=== PATIENT | male | born 1940 | race Caucasian/White ===

== ENCOUNTER → 2024-05-21 | Outpatient (CLI) | payer MEDICARE, SELFPAY ==
[2024-05-21 11:50] LABS: Collection Type, Urine Clean Catch
[2024-05-21 12:27] LABS: Bilirubin,Urine Negative (Negative); Blood,Urine Negative (Negative); Clarity,Urine Clear (Clear/Hazy); Color,Urine Yellow (Lt Yel-Yel); Culture Indicated,Urine Not Indicated; Glucose, Urine Negative (Negative); Ketones,Urine Negative (Negative); Leukocyte Esterase,Urine Negative (Negative); Nitrite,Urine Negative (Negative); PH,Urine 5.5 (5.0-7.0); Protein,Urine Trace (Neg - Trace); RBC,Urine 1 /hpf (0-3); Specific Gravity,Urine 1.025 (1.001-1.035); Squamous Epithelial Cell,Urine < 1 /hpf (0-5); Urobilinogen,Urine Negative mg/dL (0.0-1.0); WBC,Urine < 1 /hpf (0-5)
[2024-05-21 12:40] LABS: Alanine Aminotransferase 15 U/L (10-49); Albumin, Serum 4.5 gm/dL (3.4-4.8); Alkaline Phosphatase 93 U/L (46-116); Anion Gap 7 (7-16); Aspartate Amino Transferase 13 U/L (0-34); BUN/Creatinine Ratio 16 Ratio (12-20); Bilirubin,Total 0.5 mg/dL (0.3-1.2); Blood Urea Nitrogen 16 mg/dL (9-23); Carbon Dioxide 28.4 mMol/L (20.0-31.0); Chloride 103 mMol/L (98-107); Creatine Kinase 48 U/L (34-171); Globulin 2.2 gm/dL (2.3-3.5); Glucose 129 mg/dL (74-106); Lipase 29 U/L (12-53); Magnesium 1.7 mg/dL (1.6-2.6); Osmolality,Calculated 278 (275-295); Potassium 4.2 mMol/L (3.4-5.1); Sodium 138 mMol/L (136-145); Total Protein 6.7 gm/dL (5.7-8.2); Vitamin B12 935 pg/mL (211-911); eGFR > 60 See Note
== END | disposition home or self-care (01) ==
PROVIDERS: PCP Nurse Practitioner Family; Referring Provider Nurse Practitioner Family; Visit Provider Nurse Practitioner Family
DX: K80.20 Calculus of gallbladder without cholecystitis without obstruction (principal); N28.1 Cyst of kidney, acquired; R25.2 Cramp and spasm
CPT/HCPCS: 36415; 80053; 81001; 82550; 82607; 83690; 83735

== ENCOUNTER → 2024-06-12 | Outpatient (BNVA) | payer MEDICARE, SELFPAY | END | disposition home or self-care (01) | PROVIDERS: PCP Family Medicine; Referring Provider Family Medicine; Visit Provider Urology | DX: N40.1 Benign prostatic hyperplasia with lower urinary tract symptoms (principal); N13.8 Other obstructive and reflux uropathy; N32.81 Overactive bladder; I10 Essential (primary) hypertension; E11.9 Type 2 diabetes mellitus without complications; Z87.891 Personal history of nicotine dependence | CPT/HCPCS: 51798; 76857; 81003; 99212; 99213; G0463 ==

== ENCOUNTER → 2024-06-14 | Outpatient (CLI) | payer MEDICARE, SELFPAY | END | disposition home or self-care (01) | LOC: SDIM 09:48 | PROVIDERS: PCP Nurse Practitioner Family; Referring Provider Nurse Practitioner Family; Visit Provider Nurse Practitioner Family | DX: Z53.8 Procedure and treatment not carried out for other reasons (principal) ==

== ENCOUNTER → 2024-07-30 | Outpatient (CLI) | payer MEDICARE, SELFPAY ==
[2024-07-30 12:12] LABS: Misc Send Out* See Sep Rpt
[2024-07-30 13:44] LABS: Basophils % (Auto) 1 % (0-2.5); Eosinophils # (Auto) 0.1 Thou/mm3 (0.0-0.5); Eosinophils % (Auto) 2 % (0-10); Hematocrit 44.4 % (41.0-53.0); Hemoglobin 14.4 g/dL (13.5-16.0); Immature Granulocytes % (Auto) 0 % (0-0); Immature Granulocytes Auto 0.02 Thou/mm3 (0.00-0.00); Lymphocytes # (Auto) 1.2 Thou/mm3 (1.0-4.8); Lymphocytes % (Auto) 20 % (10-50); Mean Corpuscular HGB Conc 32.4 g/dl (31.0-37.0); Mean Corpuscular Hemoglobin 28.6 pg (25.0-35.0); Mean Corpuscular Volume 88 fL (80-100); Monocytes # (Auto) 0.6 Thou/mm3 (0.0-0.8); Monocytes % (Auto) 9 % (0-12); Neutrophils # (Auto) 4.1 Thou/mm3 (1.8-7.7); Neutrophils % (Auto) 68 % (37-80); Nucleated Red Blood Cell % 0 /100 WBC (0); Platelet Count 225 Thou/mm3 (140-440); RDW Standard Deviation 46.5 fL (35.1-43.9); Red Blood Count 5.04 Miln/mm3 (4.50-5.90)
[2024-07-30 13:47] LABS: INR 1.1 (0.9-1.3); Prothrombin Time 11.9 Seconds (9.0-12.2)
[2024-07-30 14:04] LABS: Alanine Aminotransferase 18 U/L (10-49); Albumin, Serum 4.4 gm/dL (3.4-4.8); Alkaline Phosphatase 87 U/L (46-116); Anion Gap 7 (7-16); Aspartate Amino Transferase 16 U/L (0-34); BUN/Creatinine Ratio 17 Ratio (12-20); Bilirubin,Direct 0.1 mg/dL (0.0-0.3); Bilirubin,Total 0.3 mg/dL (0.3-1.2); Blood Urea Nitrogen 17 mg/dL (9-23); Calcium 9.4 mg/dL (8.3-10.6); Carbon Dioxide 29.9 mMol/L (20.0-31.0); Chloride 103 mMol/L (98-107); Glucose 158 mg/dL (74-106); LDH (Lactate Dehydrogenase) 175 U/L (120-246); Osmolality,Calculated 283 (275-295); Potassium 4.2 mMol/L (3.4-5.1); Sodium 140 mMol/L (136-145); Total Protein 6.8 gm/dL (5.7-8.2); eGFR > 60 See Note
[2024-07-30 14:45] LABS: Ferritin 26 ng/mL (10.5-307.3)
[2024-07-30 16:45] LABS: Hepatitis A Antibody IgM Non Reactive (Non React); Hepatitis B Core Antibody IgM Non Reactive (Non React); Hepatitis B Surface Antigen Non Reactive (Non React); Hepatitis C Antibody Non Reactive (Non React)
[2024-08-04 06:49] LABS: HIV Ag/Ab, 4th Gen NON-REACTIVE
== END | disposition home or self-care (01) ==
LOC: COPL 11:51
PROVIDERS: PCP Family Medicine; Referring Provider Internal Medicine Gastroenterology; Visit Provider Internal Medicine Gastroenterology
DX: K80.20 Calculus of gallbladder without cholecystitis without obstruction (principal)
CPT/HCPCS: 36415; 80048; 80074; 80076; 81596; 82105; 82728; 83615; 85025; 85610; 87389

== ENCOUNTER → 2024-08-20 | Outpatient (CLI) | payer MEDICARE, SELFPAY ==
--- NOTE | 2024-08-20 13:22 | XR_ITS ---
MRI abdomen, without contrast. MRCP Date and time of exam: August 20, 2024 1352 hrs. Indications: Abdominal pain beginning 7 months ago, cholelithiasis, suspicious for cholecystitis gallbladder wall thickening on abdomen sonogram May 16, 2024 Technique: Multiple axial and coronal images of the abdomen have been obtained with the Siemens 1.5T MRI scanner. Images obtained included T1 weighted transverse images, T2-weighted transverse images, T2-weighted transverse images fat-suppressed, T2 weighted haste fat suppressed transverse images, T1 weighted images, in and out of phase images, T2-weighted coronal images, breath hold, T2 weighted haze coronal images as well as T2 weighted coronal thick slab images, MRCP. Findings: No focal liver lesions Contracted gallbladder with gallstones No gallbladder wall thickening or edema Common bile duct 4 mm no definite stones Atrophic pancreas Spleen is not enlarged Minimal perinephric stranding Bilateral benign renal cysts, the largest lower pole right kidney 5.4 cm No ascites Extensive magnetic susceptibility artifact Impression: Cholelithiasis, negative for cholecystitis Negative for common hepatic or common bile duct stones
== END | disposition home or self-care (01) ==
LOC: SDIM 13:12
PROVIDERS: PCP Family Medicine; Referring Provider Internal Medicine Gastroenterology; Visit Provider Internal Medicine Gastroenterology
DX: K80.20 Calculus of gallbladder without cholecystitis without obstruction (principal)
CPT/HCPCS: S8037; 74181

== ENCOUNTER → 2024-12-01 | Outpatient (CLI) | payer MEDICARE, SELFPAY ==
[2024-12-01 13:55] LABS: Cardiac Risk Estimate 4.7 RATIO (4.0-6.7); Cholesterol 213 mg/dL (132-200); Free T4 (Free Thyroxine) 1.32 ng/dL (0.89-1.76); HDL Cholesterol 45 mg/dL (40-60); LDL Cholesterol,Calculated 144 mg/dL (0-130); Magnesium 2.1 mg/dL (1.6-2.6); Thyroid Stimulating Hormone 2.05 uIU/mL (0.55-4.78); Triglycerides 118 mg/dL (30-150)
[2024-12-01 13:58] LABS: Vitamin B12 471 pg/mL (211-911); Vitamin D 25 Hydroxy Total 23.8 ng/mL (7.3-40.2)
[2024-12-05 06:58] LABS: Thyroid Peroxidase Antibodies* <1 IU/mL (<9)
== END | disposition home or self-care (01) ==
LOC: COPL 12:36
PROVIDERS: PCP Family Medicine; Referring Provider Nurse Practitioner Family; Visit Provider Nurse Practitioner Family
DX: E04.9 Nontoxic goiter, unspecified (principal); E53.8 Deficiency of other specified B group vitamins; E55.9 Vitamin D deficiency, unspecified; E78.5 Hyperlipidemia, unspecified
CPT/HCPCS: 36415; 80061; 82306; 82607; 83735; 84439; 84443; 86376

== ENCOUNTER 2024-12-15 17:00 | Emergency (ER) | payer MEDICARE, SELFPAY ==
[2024-12-15 17:03] VITALS: BP 150/80; PULSE 82; RESP 18; TEMP 37.2; O2SAT 95
[2024-12-15 17:04] VITALS: BMI 28.1
[2024-12-15 17:44] VITALS: PULSE 79; RESP 18; O2SAT 96
--- NOTE | 2024-12-15 17:53 | EKG_ITS ---
[facility] (Formerly [facility]) Test Date: 2024-12-15 Pat Name: RAFFAELE ALBARRAN Department: Room: - Gender: Male Developmental Behavioral Physician: : 1940 Requested By: Brett Guillermo Order Number: [id number] Reading MD: Brett Guillermo Measurements Intervals [place] Rate: 69 P: 61 ME: 159 QRS: 64 QRSD: 95 T: 72 QT: 384 QTc: 412 Interpretive Statements SINUS RHYTHM WITH OCCASIONAL SUPRAVENTRICULAR PREMATURE COMPLEXES Compared to ECG 03/16/2023 12:38:14 Atrial-paced complex(es) or rhythm no longer present /store/S0/[id number].pdf
--- NOTE | 2024-12-15 17:53 | XR_ITS ---
Examination: Chest single view TECHNIQUE: Semiupright AP chest single view Date and time: 201911/10/1940 9:00 PM Comparison March 16, 2023 INDICATIONS: Weakness shortness of breath today FINDINGS: Normal heart size Ectatic thoracic aorta No pneumonia or pulmonary edema Moderate osteopenia IMPRESSION: No active disease
[2024-12-15 18:29] VITALS: BP 173/84; PULSE 66; RESP 20; O2SAT 95
--- NOTE | 2024-12-15 18:32 | PC.NURSE ---
PT BROUGHT IN BY EMS FOR WEAKNESS AT HOME. PT STATES THAT HE FELL AT HOME YESTERDAY AND TODAY. PT STATES THAT HE LIVE AT HOME WITH , WHO IS PARALYZED, AND DOES HAVE HOSPICE AND A CLEANING LADY SHOW UP AT THE HOUSE. ON ASSESSMENT, PT IS ABLE TO LIFT LEGS BUT STATES THAT THEY FEEL HEAVY. PT IS ALERT AT THIS TIME. PT SEEN BY PROVIDER AND WILL FOLLOW THROUGH ON ORDERS.
[2024-12-15 18:46] LABS: Basophils % (Auto) 0 % (0-2.5); Eosinophils # (Auto) 0.1 Thou/mm3 (0.0-0.5); Eosinophils % (Auto) 1 % (0-10); Hematocrit 41.1 % (41.0-53.0); Hemoglobin 13.7 g/dL (13.5-16.0); Immature Granulocytes % (Auto) 0 % (0-0); Immature Granulocytes Auto 0.03 Thou/mm3 (0.00-0.00); Lymphocytes # (Auto) 1.6 Thou/mm3 (1.0-4.8); Lymphocytes % (Auto) 18 % (10-50); Mean Corpuscular HGB Conc 33.3 g/dl (31.0-37.0); Mean Corpuscular Hemoglobin 29.5 pg (25.0-35.0); Mean Corpuscular Volume 88 fL (80-100); Monocytes # (Auto) 0.7 Thou/mm3 (0.0-0.8); Monocytes % (Auto) 7 % (0-12); Neutrophils # (Auto) 6.5 Thou/mm3 (1.8-7.7); Neutrophils % (Auto) 73 % (37-80); Nucleated Red Blood Cell % 0 /100 WBC (0); Platelet Count 188 Thou/mm3 (140-440); RDW Standard Deviation 47.3 fL (35.1-43.9); Red Blood Count 4.65 Miln/mm3 (4.50-5.90); White Blood Count 8.9 Thou/mm3 (3.8-10.6)
[2024-12-15 19:04] LABS: Alanine Aminotransferase 15 U/L (10-49); Albumin, Serum 4.4 gm/dL (3.4-4.8); Alkaline Phosphatase 86 U/L (46-116); Anion Gap 8 (7-16); Aspartate Amino Transferase 18 U/L (0-34); BUN/Creatinine Ratio 17 Ratio (12-20); Bilirubin,Total 0.2 mg/dL (0.3-1.2); Blood Urea Nitrogen 17 mg/dL (9-23); Calcium 9.4 mg/dL (8.3-10.6); Calcium (Corrected) 9.4 mg/dL (8.5-10.1); Carbon Dioxide 27.8 mMol/L (20.0-31.0); Chloride 103 mMol/L (98-107); Globulin 2.2 gm/dL (2.3-3.5); Glucose 109 mg/dL (74-106); Lipase 28 U/L (12-53); Osmolality,Calculated 280 (275-295); Potassium 4.2 mMol/L (3.4-5.1); Sodium 139 mMol/L (136-145); Total Protein 6.6 gm/dL (5.7-8.2); Troponin I < 0.020 ng/mL (0.0-0.045); eGFR > 60 See Note
[2024-12-15 19:09] VITALS: BP 147/78; PULSE 65; RESP 22; TEMP 36.7; O2SAT 96
--- NOTE | 2024-12-15 19:27 | PD.EDWEAK ---
ED Weakness RME/HPI General Chief complaint: Weakness Stated complaint: WEAKNESS Time Seen by Provider: 12/15/24 17:53 Arrival date/time: 12/15/24 17:00 Limitations: no limitations RME / HPI RME / HPI Narrative: 84-year-old male was brought in by EMS for for increased weakness today. He had a nonsyncopal related fall without injuries. He is currently taking Eliquis. He has a history of hypertension, diabetes. His vital signs have been stable throughout transport. EMS reports a blood sugar 121. Related Data Home Medications ?Medication ?Instructions ?Recorded ?Confirmed atorvastatin 80 mg tablet 80 mg PO HS 08/18/18 05/08/22 baclofen 20 mg tablet 20 mg PO QDAY 08/18/18 05/08/22 duloxetine 30 mg capsule,delayed 30 mg PO QDAY 08/18/18 05/08/22 release hydrocodone 5 mg-acetaminophen 325 1 tab PO Q4H PRN Pain 08/18/18 05/08/22 mg tablet hydroxyzine HCl 25 mg tablet 25 mg PO DAILY 08/18/18 05/08/22 lisinopril 20 mg tablet 20 mg PO QDAY 08/18/18 05/08/22 terazosin 2 mg capsule 2 mg PO QDAY 08/18/18 05/08/22 tamsulosin 0.4 mg capsule 0.4 mg PO QHS 08/25/21 05/08/22 Previous Rx's ?Medication ?Instructions ?Recorded apixaban 5 mg tablet (Eliquis) 5 mg PO BID #60 tabs 08/20/18 metformin 1,000 mg tablet 1,000 mg PO BID #60 tabs 08/20/18 ipratropium 0.5 mg-albuterol 3 mg 3 ml inhalation Q8H PRN shortness 03/16/23 (2.5 mg base)/3 mL nebulization of breath #180 mL soln prednisone 50 mg tablet 50 mg PO QDAY #5 tabs 03/16/23 Allergies Allergy/AdvReac Type Severity Reaction Status Date / Time No Known Allergies Allergy Verified 06/12/24 14:27 ED Exam General Limitations: Present no limitations General appearance: Present alert and in no apparent distress Head Head exam: Present atraumatic Eye Eye exam: Present normal appearance, PERRL and EOMI ENT ENT exam: Present normal exam, normal oropharynx and mucous membranes moist Neck Neck exam: Present normal inspection, full ROM and trachea midline Chest Chest inspection: Present normal inspection and symmetric chest wall rise Respiratory Respiratory exam: Present normal lung sounds bilaterally Cardiovascular Cardiovascular exam: Present regular rate, normal rhythm and normal heart sounds Abdominal Exam Abdominal exam: Present soft and normal bowel sounds Extremities Exam Extremities exam: Present normal inspection and full ROM Back Exam Back exam: Present normal inspection and full ROM Neurological Exam Neurological exam: Present alert, oriented X3 and CN II-XII intact Psychiatric Psychiatric exam: Present normal affect and normal mood Skin Skin exam: Present warm, dry, intact and normal color Course Quality Measures none Orders Category Date Time Status EKG (ED ONLY) *Do not use* NOW Care 12/15/24 17:53 Completed EKG (ED Only) Stat Exams 12/15/24 17:53 Draft XR chest 1V Stat Exams 12/15/24 17:53 Completed CBC Stat Lab 12/15/24 18:28 Completed CMP [Comprehensive Metabolic Panel] Stat Lab 12/15/24 18:28 Completed Lipase Stat Lab 12/15/24 18:28 Completed Troponin I Stat Lab 12/15/24 18:28 Completed UA, C/S IF [Urinalysis, C/S if Indicated] Stat Lab 12/15/24 19:35 Completed Vital Signs Vital signs: Vital Signs Temperature 99.0 F 12/15/24 17:03 Pulse Rate 82 12/15/24 17:03 Respiratory Rate 18 12/15/24 17:03 Blood Pressure 150/80 H 12/15/24 17:03 Pulse Oximetry (%) 95 12/15/24 17:03 Oxygen Delivery Method Room Air 12/15/24 17:03 Weakness MDM Narrative MDM Narrative:: 84-year-old male was brought in by EMS for for increased weakness today. He had a nonsyncopal related fall without injuries. He is currently taking Eliquis. He has a history of hypertension, diabetes. His vital signs have been stable throughout transport. EMS reports a blood sugar 121. On exam, patient is nontoxic-appearing no visible signs stress. Cranial nerves II to XII are grossly intact. He does not describe any symptoms concerning for TIA or stroke. He states he has no pain at this time. His work appears essentially markable. Patient was able to ambulate throughout the ER without assistance. Gait was stable. We discussed his test results in detail. Patient is agreeable to returning home in this time. There appears to be good family support at home at this time. We discussed return precautions. Patient does agree to have a low threshold for returning here at any time. Patient data External records reviewed:: None Clinical information provided by:: patient and EMS Social determinants that could affect healthcare access:: none Patient has the following chronic illnesses:: Hyperlipidemia, hypertension, diabetes How is presenting disease/condition affected by chronic disease/condition?: uneffected by Evaluation data The following diagnostics were reviewed and interpreted by me:: lab results, radiology exam(s) (Clear expanded lungs without any mass or infiltrate) and EKG tracing(s) (Normal sinus rhythm at 69 bpm with PACs present. There are no ST changes or dynamic T waves.) Lab and/or radiology exams considered but not ordered:: No significant leukocytosis, anemia, or metabolic derangement Interpretation Summary: Work appears essentially unremarkable Medications / Prescriptions Medications or Prescriptions considered but not ordered:: n/a Medication administrations:: n/a Consultations Consultation(s) initiated? (list below): No Diagnosis Weakness Differential Diagnosis: anemia, sepsis and dehydration Most likely diagnosis given after review of the tests above:: Workup was unremarkable discussed possible functional geriatric decline Admission Indicated Admission indicated?: not indicated Admission Request Was there a request for admission?: No Disposition Plan Disposition Plan: Discharge Discharge Attestation Discharge Attestation: The patient and all family members were given an opportunity to ask questions and understood the discharge instructions. Discharge instructions specifically effects, indications for sooner follow up or return to the emergency department, and the expected course of current diagnosis. Patient condition: Stable Discharge Plan Plan Patient Disposition: HOME (Self Care) Patient condition on transfer: Stable Prescriptions/Referrals Prescriptions/Med Rec: No Action tamsulosin 0.4 mg capsule 0.4 mg PO QHS atorvastatin 80 mg Tablet 80 mg PO HS hydrocodone-acetaminophen 5-325 mg Tablet 1 tab PO Q4H PRN (Reason: Pain) lisinopril 20 mg Tablet 20 mg PO QDAY baclofen 20 mg Tablet 20 mg PO QDAY terazosin 2 mg Capsule 2 mg PO QDAY hydroxyzine HCl 25 mg Tablet 25 mg PO DAILY duloxetine 30 mg Capsule,Delayed Release(Dr/Ec) 30 mg PO QDAY apixaban [Eliquis] 5 mg tablet 5 mg PO BID Qty: 60 0RF metformin 1,000 mg tablet 1,000 mg PO BID Qty: 60 0RF ipratropium-albuterol 0.5 mg-3 mg(2.5 mg base)/3 mL solution for nebulization 3 ml inhalation Q8H PRN (Reason: shortness of breath) Qty: 180 0RF prednisone 50 mg tablet 50 mg PO QDAY Qty: 5 0RF Referrals: Pranay Hernandez([facility] [Primary Care Provider] - In 1 week Problem List Clinical Impression: Generalized weakness Patient/Caregiver Discharge Instructions Education Materials: ED Weakness (Uncertain Cause) Additional Instructions: Your workup today was essentially unremarkable. Please have a low threshold for return here at anytime for any worsening changes. Print Language: Moh[place] Stand Alone Forms: Marilyn Award Info., Patient Portal Info Letter
[2024-12-15 19:38] LABS: Collection Type, Urine Voided; Squamous Epithelial Cell,Urine 0 /hpf (0-5)
[2024-12-15 19:42] LABS: Bilirubin,Urine Negative (Negative); Blood,Urine Negative (Negative); Clarity,Urine Clear (Clear/Hazy); Color,Urine Yellow (Lt Yel-Yel); Culture Indicated,Urine Not Indicated; Glucose, Urine Negative (Negative); Ketones,Urine Negative (Negative); Leukocyte Esterase,Urine Negative (Negative); Nitrite,Urine Negative (Negative); PH,Urine 5.5 (5.0-7.0); Protein,Urine Negative (Neg - Trace); RBC,Urine 2 /hpf (0-3); Specific Gravity,Urine 1.021 (1.001-1.035); Urobilinogen,Urine Negative mg/dL (0.0-1.0); WBC,Urine 1 /hpf (0-5)
--- NOTE | 2024-12-15 20:30 | PC.NURSE ---
PT AMBULATED WITH WALKER APPROX 30 FFET USING A WALKER WITH OUT ANY ISSUES. NAD NOTED. PT VITAL SIGNS ALL STABLE. DENIES ANY DIZZINESS, SOB, NAUSEA.
[2024-12-15 20:53] VITALS: BP 144/65; PULSE 78; RESP 18; TEMP 36.7; O2SAT 99
== END 2024-12-15 20:55 | disposition home or self-care (01) ==
PROVIDERS: Physician Assistant Medical; Emergency Provider Emergency Medicine; PCP Family Medicine
DX: R53.1 Weakness (principal); R06.02 Shortness of breath; I49.1 Atrial premature depolarization; I10 Essential (primary) hypertension; Z79.01 Long term (current) use of anticoagulants
CPT/HCPCS: 36415; 71045; 80053; 81001; 83690; 84484; 85025; 93005; 99283

== ENCOUNTER 2024-12-16 07:35 | Inpatient (IN) | payer MEDICARE, SELFPAY ==
[2024-12-16] VITALS (12 sets, daily range): BP systolic 141–187; BP diastolic 78–96; PULSE 62–77; RESP 16–96; TEMP 36.2–36.6; O2SAT 95–99; BMI 27.8
--- NOTE | 2024-12-16 | XR_ITS ---
Examinations: MRI Brain without intravenous contrast. MRA brain without intravenous contrast. MRA carotids without intravenous contrast 3-D vascular reconstructions Date and time of exam: December 16, 2024 1147 hours INDICATIONS: Stroke alert December 16, 2024, right-sided facial droop right-sided body weakness today Technique: Multiple axial and sagittal images of the brain have been obtained MRA brain carotid images without contrast obtained, including 3-D postprocessing, vascular maximum intensity projection images Findings: Sellaturcica is not enlarged. The optic chiasm and infundibular stalk are not remarkable. Prepontine and interpeduncular cisterns are not enlarged. No localized enlargement of the medulla or beni. Fourth ventricle and cerebellar tonsils normal in position. Subacute hemorrhage is not seen. Fourth ventricle is midline. Mass in the cerebellopontine angle region is not evident. 7th and 8th nerve complexes exhibits symmetry. Globes are symmetrical with no retro-orbital mass. Increased white matter signal moderate Diffusion-weighted images demonstrate 13 mm focus restricted diffusion left caudate nucleus Mass-effect upon the ventricular system is not identified. MRA carotid images severely degraded by patient motion. 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
--- NOTE | 2024-12-16 07:40 | EKG_ITS ---
[facility] Test Date: 2024-12-16 Pat Name: RAFFAELE ALBARRAN Department: Room: - Gender: Male Punch Hand: : 1940 Requested By: Sj Guillermo Order Number: [id number] Reading MD: Sj Guillermo Measurements Intervals [place] Rate: 64 P: 70 [place]: 155 QRS: 59 QRSD: 97 T: 73 QT: 380 QTc: 394 Interpretive Statements SINUS RHYTHM Compared to ECG 12/15/2024 18:19:50 No significant changes /store/S0/[id number]/[id number].pdf
--- NOTE | 2024-12-16 07:40 | XR_ITS ---
Examination: CTA carotids with intravenous contrast CTA brain, head with intravenous contrast. 2-D sagittal, coronal reconstructions. 3-D reconstructions. Exam date and time: December 16, 2024 0845 hours INDICATIONS: Stroke alert, onset focal neurologic deficit today CTDI: vol (mGy) 13.8 DLP: (mGycm) 128 Technique: Multiple CTA axial brain, head carotid images post intravenous contrast injection 75 cc, [id number]. 2-D sagittal, coronal reconstructions. 3-D reconstructions, 3-D post processing including vascular maximum intensity projection images. Low dose protocols were performed. One or more of the following dose reduction techniques were used; automated exposure control, adjustment of the mA and/or KV according to patient size, use of iterative reconstruction technique. Findings: Heavy calcification right carotid bifurcation, 80% stenosis origin right internal carotid artery Significant calcification left carotid bifurcation, 80% stenosis left internal carotid artery at its origin Codominant vertebral arteries with no critical stenoses Intracranial vertebral arteries basilar artery and posterior cerebral branches do fill Juxtasellar supraclinoid portions internal carotid arteries fill M1 segments middle cerebral arteries middle cerebral artery trifurcation vessels and anterior cerebral arteries fill as well as anterior cerebral arteries 50% stenosis proximal M1 segment right middle cerebral artery IMPRESSION: 80% stenosis origin right internal carotid artery 80% stenosis origin left internal carotid artery 50% stenosis proximal M1 segment right middle cerebral artery No cerebral large vessel arterial occlusions or thrombus
--- NOTE | 2024-12-16 07:40 | XR_ITS ---
Examination: CT brain head without contrast. 2-D sagittal coronal reconstructions Date and time of exam:December 16, 2024 0744 hours INDICATIONS: Stroke alert, onset focal neurologic deficit today CTDI: vol (mGy):50 DLP: (mGycm):990 Technique: Multiple CT axial sections of the brain have been obtained, 5 mm slice thickness. Contrast has not been administered. 2-D sagittal, coronal reconstructions have been obtained Low dose protocols were performed. One or more of the following dose reduction techniques were used; automated exposure control, adjustment of the mA and/or KV according to patient size, use of iterative reconstruction technique. Findings: No significant ventricular enlargement. 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 No mass effect or midline shift Basal cisterns are not remarkable. Fourth ventricle is midline. Cranial vault intact. Impression: Negative for acute hemorrhage, mass effect or midline shift
--- NOTE | 2024-12-16 08:01 | PD.EDNEURO ---
Neuro Symptoms Deficit-RME/HPI General Chief Complaint: Altered Mental Status Stated Complaint: STROKE Time Seen by Provider: 12/16/24 07:40 Arrival date/time: 12/16/24 07:35 RME / HPI RME / HPI Narrative: DR. BUCK MAIN ED EVALUATION: 84 year old male with past medical history significant for COPD, diabetes on Metformin, and hypertension presents to the Emergency Department [facility] with complaint of right facial droop and right weakness/ heaviness feeling. Patient was seen yesterday and discharged with generalized weakness. Today, the son called an ambulance after the patient called him at 6 AM and his speech was garbled and patient stated his right side felt heavy. Last well known time is unknown, unsure if patient woke up with symptoms or it started at 6 AM. No history of previous CVA. No further history at this time. Related Data Home Medications ?Medication ?Instructions ?Recorded ?Confirmed atorvastatin 80 mg tablet 80 mg PO HS 08/18/18 05/08/22 baclofen 20 mg tablet 20 mg PO QDAY 08/18/18 05/08/22 duloxetine 30 mg capsule,delayed 30 mg PO QDAY 08/18/18 05/08/22 release hydrocodone 5 mg-acetaminophen 325 1 tab PO Q4H PRN Pain 08/18/18 05/08/22 mg tablet hydroxyzine HCl 25 mg tablet 25 mg PO DAILY 08/18/18 05/08/22 lisinopril 20 mg tablet 20 mg PO QDAY 08/18/18 05/08/22 terazosin 2 mg capsule 2 mg PO QDAY 08/18/18 05/08/22 tamsulosin 0.4 mg capsule 0.4 mg PO QHS 08/25/21 05/08/22 Previous Rx's ?Medication ?Instructions ?Recorded apixaban 5 mg tablet (Eliquis) 5 mg PO BID #60 tabs 08/20/18 metformin 1,000 mg tablet 1,000 mg PO BID #60 tabs 08/20/18 ipratropium 0.5 mg-albuterol 3 mg 3 ml inhalation Q8H PRN shortness 03/16/23 (2.5 mg base)/3 mL nebulization of breath #180 mL soln prednisone 50 mg tablet 50 mg PO QDAY #5 tabs 03/16/23 Allergies Allergy/AdvReac Type Severity Reaction Status Date / Time No Known Allergies Allergy Verified 06/12/24 14:27 Review of Systems Review of Systems Systems Reviewed: All systems reviewed, normal except as documented Past Medical History Past Medical History CARDIAC: Positive Cardiac Disorders, Myocardial Infarction, Hypercholesterolemia and Hypertension RESPIRATORY: Positive Asthma MUSCULOSKELETAL: Positive Osteoporosis and Fractures (pelvic) ENT: Positive Cataracts ENDOCRINE: Positive Diabetes Mellitus Type 2 Surgical History SURGICAL: Positive Coronary Stent and Tonsillectomy Social History SMOKING STATUS: Former smoker SECOND HAND EXPOSURE: Yes SUBSTANCE USE: does not use ALCOHOL: Never ED Exam General General appearance: Present alert, in no apparent distress and other (right facial droop, right-sided weakness) Head Head exam: Present atraumatic, normocephalic and normal inspection Eye Eye exam: Present normal appearance, PERRL and EOMI ENT ENT exam: Present normal exam, normal oropharynx and mucous membranes moist Neck Neck exam: Present normal inspection, full ROM and trachea midline Chest Chest inspection: Present normal inspection and symmetric chest wall rise Respiratory Respiratory exam: Present normal lung sounds bilaterally Cardiovascular Cardiovascular exam: Present regular rate, normal rhythm and normal heart sounds Abdominal Exam Abdominal exam: Present soft and normal bowel sounds Extremities Exam Extremities exam: Present normal inspection and full ROM Back Exam Back exam: Present normal inspection and full ROM Neurological Exam Neurological exam: Present other (right facial droop, right-sided weakness and involving forehead; gait/ balance not tested) Expanded Neurological Exam Speech: Present expressive aphasia Motor strength - LUE: 5/5 Motor strength - RUE: 4/5 (arm ratcheting) Motor strength - LLE: 5/5 Motor strength - RLE: 4/5 Psychiatric Psychiatric exam: Present normal affect and normal mood Skin Skin exam: Present warm, dry, intact and normal color Course Quality Measures none Orders Category Date Time Status Bedside Blood Glucose NOW Care 12/16/24 07:40 Completed COVID-19 Screening Questionnaire NOW Care 12/16/24 08:56 Active Dsp Engineer NOW Care 12/16/24 07:40 Completed Continuous Pulse Oximetry NOW Care 12/16/24 07:40 Completed Decision to Admit X1 Care 12/16/24 08:56 Completed EKG (ED ONLY) *Do not use* NOW Care 12/16/24 07:40 Completed In and Out Catheter NEEDED Care 12/16/24 07:40 Completed Insert IV NOW Care 12/16/24 07:40 Completed NIH Stroke Scale now Care 12/16/24 07:40 Active NPO NOW Care 12/16/24 07:40 Completed Neuro Check Q15MIN Care 12/16/24 07:40 Completed Nurse Swallow Screen x1 Care 12/16/24 07:40 Active Consult to Neurology / Tele-Neurology Routine Cons 12/16/24 07:[address] angio stroke protocol Stat Exams 12/16/24 07:[address] stroke protocol Stat Exams 12/16/24 07:40 Completed EKG (ED Only) Stat Exams 12/16/24 07:40 Draft XR hip RT w pelvis 2-3V Stat Exams 12/16/24 09:21 Completed Alcohol, Blood Medical Stat Lab 12/16/24 08:15 Completed B-Type Natriuretic Peptide Stat Lab 12/16/24 08:15 Completed CBC Stat Lab 12/16/24 08:15 Completed Comprehensive Metabolic Panel Stat Lab 12/16/24 08:15 Completed Drug Screen,Urine Stat Lab 12/16/24 10:28 Completed Magnesium Stat Lab 12/16/24 08:15 Completed Partial Thromboplastin Time Stat Lab 12/16/24 08:15 Completed Prothrombin Time with INR Stat Lab 12/16/24 08:15 Completed Troponin I Stat Lab 12/16/24 08:15 Completed Urinalysis Stat Lab 12/16/24 10:28 Completed Urine Culture Stat Lab 12/16/24 07:40 Received Aspirin Med 12/16/24 08:21 Discontinued 325 mg PO X1 ONE Ondansetron Inj [Zofran Inj] Med 12/16/24 07:40 Active 4 mg IVP Q4HR PRN Sodium Chloride 0.9% 1000 ml [Ns] 1,000 ml Med 12/16/24 07:45 Discontinued IV Q10H Oxygen Delivery NOW RT 12/16/24 07:40 Active Vital Signs Vital signs: Vital Signs Pulse Rate 74 12/16/24 07:40 Neuro Symptoms / Deficit MDM Narrative MDM Narrative:: I, Rosy Padgett, am scribing for and in the presence of Dr. Buck. Patient data External records reviewed:: [facility] previous records and EMS form Clinical information provided by:: patient, EMS and family (son) Social determinants that could affect healthcare access:: none Patient has the following chronic illnesses:: COPD, diabetes on Metformin, and hypertension. How is presenting disease/condition affected by chronic disease/condition?: uneffected by Evaluation data The following diagnostics were reviewed and interpreted by me:: lab results, radiology exam(s) and EKG tracing(s) Lab and/or radiology exams considered but not ordered:: none Interpretation Summary: EKG: Dated 12/16/2024 at 0806 hours. Interpreted by me: sinus rhythm, rate 64, no acute changes RADIOLOGY Procedure(s): CT stroke protocol Accession Number(s): [id number] cc: Sj Buck MD; Tan Forbes MD; NO PRIMARY/FAMILY,PHYSICIAN~ Examination: CT brain head without contrast. 2-D sagittal coronal reconstructions Date and time of exam:December 16, 2024 0744 hours INDICATIONS: Stroke alert, onset focal neurologic deficit today CTDI: vol (mGy):50 DLP: (mGycm):990 Technique: Multiple CT axial sections of the brain have been obtained, 5 mm slice thickness. Contrast has not been administered. 2-D sagittal, coronal reconstructions have been obtained Low dose protocols were performed. One or more of the following dose reduction techniques were used; automated exposure control, adjustment of the mA and/or KV according to patient size, use of iterative reconstruction technique. Findings: No significant ventricular enlargement. 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 No mass effect or midline shift Basal cisterns are not remarkable. Fourth ventricle is midline. Cranial vault intact. Impression: Negative for acute hemorrhage, mass effect or midline shift Dictated By: Tan Forbes MD Procedure(s): CT angio stroke protocol Accession Number(s): [id number] cc: Sj Buck MD; Tan Forbes MD; NO PRIMARY/FAMILY,PHYSICIAN~ Examination: CTA carotids with intravenous contrast CTA brain, head with intravenous contrast. 2-D sagittal, coronal reconstructions. 3-D reconstructions. Exam date and time: December 16, 2024 0845 hours INDICATIONS: Stroke alert, onset focal neurologic deficit today CTDI: vol (mGy) 13.8 DLP: (mGycm) 128 Technique: Multiple CTA axial brain, head carotid images post intravenous contrast injection 75 cc, [id number]. 2-D sagittal, coronal reconstructions. 3-D reconstructions, 3-D post processing including vascular maximum intensity projection images. Low dose protocols were performed. One or more of the following dose reduction techniques were used; automated exposure control, adjustment of the mA and/or KV according to patient size, use of iterative reconstruction technique. Findings: Heavy calcification right carotid bifurcation, 80% stenosis origin right internal carotid artery Significant calcification left carotid bifurcation, 80% stenosis left internal carotid artery at its origin Codominant vertebral arteries with no critical stenoses Intracranial vertebral arteries basilar artery and posterior cerebral branches do fill Juxtasellar supraclinoid portions internal carotid arteries fill M1 segments middle cerebral arteries middle cerebral artery trifurcation vessels and anterior cerebral arteries fill as well as anterior cerebral arteries 50% stenosis proximal M1 segment right middle cerebral artery IMPRESSION: 80% stenosis origin right internal carotid artery 80% stenosis origin left internal carotid artery 50% stenosis proximal M1 segment right middle cerebral artery No cerebral large vessel arterial occlusions or thrombus Dictated By: Tan Forbes MD Medications / Prescriptions Medications or Prescriptions considered but not ordered:: none Medication administrations:: Medication Administration History Acetaminophen (Acetaminophen 325 Mg Tablet) 650 mg PO Q6H PRN PRN Reason: Pain (1-3) & Fever >100.4 Stop: 01/15/25 10:22 Albuterol/Ipratropium (Albuterol/Ipratropium (Duoneb) Rt Brenda 3 Ml Nebu) 3 ml INH Q2HR PRN PRN Reason: SHORTNESS OF BREATH OR WHEEZE Stop: 01/15/25 10:20 Aspirin (Aspirin Ec 81 Mg Tabec) 81 mg PO QDAY [facility] Stop: 01/16/25 08:59 Atorvastatin Calcium (Atorvastatin Calcium 20 Mg Tablet) 80 mg PO HS [facility] Stop: 01/15/25 20:59 Dextrose (Dextrose 50%-Water Inj 50 Ml Syringe) 25 ml IV Q15MIN PRN PRN Reason: BG 50-70 responsive npo pt Stop: 01/15/25 10:45 Dextrose (Dextrose 50%-Water Inj 50 Ml Syringe) 50 ml IV Q15MIN PRN PRN Reason: BG <50 OR BG <70 & pt unresponsive Stop: 01/15/25 10:45 Glucagon (Glucagon Inj 1 Mg Vial) 1 mg IM Q15MIN PRN PRN Reason: BG <70, and no IV access Heparin Sodium (Porcine) (Heparin Sod Inj 5000 Unit/Ml Vial) 5,000 unit SC Q12H [facility] Stop: 12/30/24 20:59 Insulin Human Lispro (Insulin Lispro (Admelog) 1 Unit/0.01 Ml Unit) [address] [facility]; Protocol Stop: 01/15/25 11:29 Last Admin: 12/16/24 12:39 Dose: Not Given Documented By: MICHELLE Non-Admin Reason: NPO Morphine Sulfate (Morphine Sulf Inj 10 Mg/Ml Vial) 1 mg IVP Q4H PRN PRN Reason: PAIN SCALE 7-10 (Severe Stop: 12/21/24 10:22 Ondansetron HCl (Ondansetron Inj 2 Mg/Ml Inj 2 Ml) 4 mg IVP Q4HR PRN PRN Reason: NAUSEA OR VOMITING Stop: 01/15/25 07:39 Pantoprazole Sodium (Pantoprazole Inj 40 Mg Vial) 40 mg IVP QDAY [facility] Stop: 01/15/25 10:29 Last Admin: 12/16/24 12:38 Dose: 40 mg Documented By: MICHELLE Discontinued Medications Aspirin (Aspirin 325 Mg Tablet) 325 mg PO X1 ONE Stop: 12/16/24 08:22 Last Admin: 12/16/24 08:31 Dose: 325 mg Documented By: MICHELLE Sodium Chloride (Ns) 1,000 mls @ 100 mls/hr IV Q10H [facility] Stop: 12/16/24 10:21 Last Infusion: 12/16/24 09:19 Dose: 100 mls/hr Documented By: Admin: 12/16/24 08:10 Dose: 100 mls/hr Documented By: BONG see complete list above Consultations Consultation(s) initiated? (list below): Yes Consultation #1 (Physician, Specialty, Details): Discussed test HPI, PMHx, lab, radiology results and/or management with resident working with the hospitalist. Will admit for further evaluation and management. Accepts patient for admission. Time: 09:15 Diagnosis Neuro Differential Diagnosis: subarachnoid hemorrhage, cerebrovascular accident and transient cerebral ischemia Most likely diagnosis given after review of the tests above:: Acute CVA Admission Indicated Admission indicated?: indicated Admission Request Was there a request for admission?: Yes Admission Attestation Admission request attestation: Discussed case with [] from Hospitalist service regarding admission. Discussed patients ED course, exam findings, labs, and radiology results. The Hospitalist [agrees,declines] to accept the patient for admission. Disposition Plan Disposition Plan: Admit Discharge Plan Plan Patient Disposition: Admit Acute Care w/in Hospital Problem List Clinical Impression: Acute CVA (cerebrovascular accident)
[2024-12-16] MEDS: SODIUM CHLORIDE 0.9% 1000 ML 1,000 ML 100 ML IV (08:10)
[2024-12-16 08:29] LABS: Basophils % (Auto) 0 % (0-2.5); Eosinophils # (Auto) 0.1 Thou/mm3 (0.0-0.5); Eosinophils % (Auto) 1 % (0-10); Hematocrit 39.2 % (41.0-53.0); Hemoglobin 13.4 g/dL (13.5-16.0); Immature Granulocytes % (Auto) 0 % (0-0); Immature Granulocytes Auto 0.02 Thou/mm3 (0.00-0.00); Lymphocytes # (Auto) 1.3 Thou/mm3 (1.0-4.8); Lymphocytes % (Auto) 15 % (10-50); Mean Corpuscular HGB Conc 34.2 g/dl (31.0-37.0); Mean Corpuscular Hemoglobin 29.1 pg (25.0-35.0); Mean Corpuscular Volume 85 fL (80-100); Monocytes # (Auto) 0.8 Thou/mm3 (0.0-0.8); Monocytes % (Auto) 9 % (0-12); Neutrophils # (Auto) 6.4 Thou/mm3 (1.8-7.7); Neutrophils % (Auto) 75 % (37-80); Nucleated Red Blood Cell % 0 /100 WBC (0); Platelet Count 182 Thou/mm3 (140-440); RDW Standard Deviation 45.5 fL (35.1-43.9); Red Blood Count 4.61 Miln/mm3 (4.50-5.90); White Blood Count 8.6 Thou/mm3 (3.8-10.6)
[2024-12-16] MEDS: Aspirin 325 MG TABLET PO (08:31)
--- NOTE | 2024-12-16 08:49 | PD.TNEURO ---
Tele Neuro Consultation Consultation Date 12/16/24 Most Recent Vital Signs Last Vital Signs Temp 97.5 F 12/16/24 08:06 Pulse 74 12/16/24 08:06 Resp 16 12/16/24 08:06 BP 163/90 H 12/16/24 08:06 Pulse Ox 96 12/16/24 08:06 O2 Del Method Room Air 12/16/24 08:06 Consultation Narrative [facility] Tele[facility]rology Consult Services Patient Name: Woodrow Jenkins Date of : 1940 Identification Number: Date of Service: 12/16/2024 07:34:14 Diagnosis: ? I63.89 - Cerebrovascular accident (CVA) due to other mechanism ([facility]) Impression: ? Mr. Jenkins is a 84 year-old man with a PMH of HTN, HLD, COPD, A.fib, Ambulates with a walker who was BIBEMS for right sided weakness. TNK was not given as he had no focal neurological deficits at the time of this evaluation, last known well time is not clear, and he is on Eliquis. Our recommendations are outlined below. Recommendations: ? Stroke/Telemetry Floor ? Neuro Checks (Q2) ? Bedside Swallow Eval ? DVT Prophylaxis ? IV Fluids, Normal Saline ? Head of Bed 30 Degrees ? Euglycemia and Avoid Hyperthermia (PRN Acetaminophen) ? Initiate or continue Aspirin 325 MG daily ? MRI Brain without contrast ? MRA Head & Neck with stroke protocol ? TTE ? Labs: lipid panel; HgbA1c ? PT/OT/ST where applicable Sign Out: ? Discussed with Emergency Department Provider Advanced Imaging: Advanced Imaging Deferred because: Non-disabling symptoms as verified by the patient; no cortical signs so not consistent with LVO Metrics: Last Known Well: Unknown Dispatch Time: 12/16/2024 07:34:14 Arrival Time: 12/16/2024 07:39:00 Initial Response Time: 12/16/2024 07:37:15 Symptoms: Weakness; slurred speech . Initial patient interaction: 12/16/2024 07:47:40 NIHSS Assessment Completed: 12/16/2024 07:52:14 Patient is not a candidate for Thrombolytic. Thrombolytic Medical Decision: 12/16/2024 07:52:17 Patient was not deemed candidate for Thrombolytic because of following reasons: Stroke severity too mild (non-disabling) . CT Head: I personally reviewed all the CT images that were available to me and it showed: no intracerebral hemorrhage Primary Provider Notified of Diagnostic Impression and Management Plan on: 12/16/2024 08:16:11 History of Present Illness: Patient is a 84 year old Male. Patient was brought by EMS for symptoms of Weakness; slurred speech . Mr. Jenkins is a 84 year-old man with a PMH of HTN, HLD, COPD, A.fib, Ambulates with a walker who was BIBEMS for weakness. He states, I was here yesterday for the same thing. He states that he feels weak all over. He says that yesterday after being discharged he went home and fell down. I spoke to his son, Alberto ([phone]). He states that yesterday his father fell. He reports that this morning his father called him at 0600 and said that he didn't know what was going on with him. He said that he couldn't move and felt paralyzed. As per EMS, Mr. Jenkins had right sided weakness, right facial droop, and slurred speech. Past Medical History: ? Hypertension ? Diabetes Mellitus ? Atrial Fibrillation Medications: Anticoagulant use: Yes Eliquis No Antiplatelet use Reviewed EMR for current medications Allergies: Reviewed,NKDA Social History: Patient Is: Smoking: Former Family History: There is no family history of premature cerebrovascular disease pertinent to this consultation ROS : 14 Points Review of Systems was performed and was negative except mentioned in HPI. Past Surgical History: There Is No Surgical History Contributory To Today?s Visit Examination: BP(181/106), Pulse(77), Blood Glucose(155) 1A: Level of Consciousness - Alert; keenly responsive + 0 1B: Ask Month and Age - Both Questions Right + 0 1C: Blink Eyes & Squeeze Hands - Performs Both Tasks + 0 2: Test Horizontal Extraocular Movements - Normal + 0 3: Test Visual Pierre - No Visual Loss + 0 4: Test Facial Palsy (Use Grimace if Obtunded) - Minor paralysis (flat nasolabial fold, smile asymmetry) + 1 5A: Test Left Arm Motor Drift - No Drift for 10 Seconds + 0 5B: Test Right Arm Motor Drift - No Drift for 10 Seconds + 0 6A: Test Left Leg Motor Drift - No Drift for 5 Seconds + 0 6B: Test Right Leg Motor Drift - No Drift for 5 Seconds + 0 7: Test Limb Ataxia (FNF/Heel-Eastman) - No Ataxia + 0 8: Test Sensation - Normal; No sensory loss + 0 9: Test Language/Aphasia - Normal; No aphasia + 0 10: Test Dysarthria - Mild-Moderate Dysarthria: Slurring but can be understood + 1 11: Test Extinction/Inattention - No abnormality + 0 NIHSS Score: 2 NIHSS Free Text : Adentureless Pre-Morbid Modified Ridge Scale: 3 Points = Moderate disability; requiring some help, but able to walk without assistance Spoke with : ER Physician (Dr. nowak) This consult was conducted in real time using interactive audio and video technology. Patient was informed of the technology being used for this visit and agreed to proceed. Patient located in hospital and provider located at home/office setting. Patient is being evaluated for possible acute neurologic impairment and high probability of imminent or life-threatening deterioration. I spent total of 35 minutes providing care to this patient, including time for face to face visit via telemedicine, review of medical records, imaging studies and discussion of findings with providers, the patient and/or family. Dr Umberto Lopez [facility] For Inpatient follow-up with [facility] physician please call [facility] at . As we are not an outpatient service for any post hospital discharge needs please contact the hospital for assistance. If you have any questions for the [facility] physicians or need to reconsult for clinical or diagnostic changes please contact us via [facility] at .
[2024-12-16 08:56] LABS: Alanine Aminotransferase 14 U/L (10-49); Albumin, Serum 4.3 gm/dL (3.4-4.8); Alcohol, Blood Medical < 3.0 mg/dL (0-10.0); Alkaline Phosphatase 85 U/L (46-116); Anion Gap 8 (7-16); Aspartate Amino Transferase 17 U/L (0-34); B-Type Natriuretic Peptide 22 pg/mL (0-100); BUN/Creatinine Ratio 15 Ratio (12-20); Bilirubin,Total 0.4 mg/dL (0.3-1.2); Blood Urea Nitrogen 15 mg/dL (9-23); Calcium 8.8 mg/dL (8.3-10.6); Calcium (Corrected) 8.8 mg/dL (8.5-10.1); Carbon Dioxide 27.9 mMol/L (20.0-31.0); Chloride 102 mMol/L (98-107); Estimated Creatinine Clearance 58.6 mL/min (>60); Globulin 2.2 gm/dL (2.3-3.5); Glucose 162 mg/dL (74-106); INR 1.1 (0.9-1.3); Magnesium 1.9 mg/dL (1.6-2.6); Osmolality,Calculated 280 (275-295); Partial Thromboplastin Time 31.9 Seconds (22.0-36.0); Prothrombin Time 12.2 Seconds (9.0-12.2); Sodium 138 mMol/L (136-145); Total Protein 6.5 gm/dL (5.7-8.2); Troponin I < 0.020 ng/mL (0.0-0.045); eGFR > 60 See Note
--- NOTE | 2024-12-16 09:21 | XR_ITS ---
Examination:Right hip AP, lateral, AP pelvis 3 views Technique: Hip AP lateral, AP pelvis, 3 views Exam date and time:December 16, 2024 at 0943 hours INDICATIONS: Patient fell 2 days ago with injury to the right hip, right hip pain. FINDINGS: No acute right hip fracture Left hip bones of the pelvis intact Severe osteopenia IMPRESSION: No acute right hip fracture If pain persists, recommend CT scan right hip without contrast follow-up.
--- NOTE | 2024-12-16 10:23 | ECHO_ITS ---
Transthoracic Echo Report Ht (in): 69 Wt (lb): 189 Exam Location: Echo Lab Status: Inpatient [employer] Professional: Jesusita Kennedy Indications: Procedure Performed: BP: 167 / 83 HR: 64 Technical Quality: Technically Difficult MEASUREMENTS (Male / Female) Normal Values 2D ECHO LV Diastolic Diameter PLAX 4.1 cm 4.2 - 5.9 / 3.9 - 5.3 cm LV Systolic Diameter PLAX 1.9 cm IVS Diastolic Thickness 0.8 cm 0.6 - 1.0 / 0.6 - 0.9 cm LVPW Diastolic Thickness 1.1 cm 0.6 - 1.0 / 0.6 - 0.9 cm LV Relative Wall Thickness 0.5 LVOT Diameter 1.8 cm DOPPLER AV Peak Velocity 143.0 cm/s AV Peak Gradient 8.2 mmHg LVOT Peak Velocity 85.9 cm/s LVOT Peak Gradient 3.0 mmHg AV Area Cont Eq pk 1.5 cm? MV Area PHT 3.0 cm? Mitral E Point Velocity 65.5 cm/s Mitral A Point Velocity 74.2 cm/s Mitral E to A Ratio 0.9 LV E' Lateral Velocity 5.4 cm/s Mitral E to LV E' Lateral Ratio 12.0 LV E' Septal Velocity 5.4 cm/s Mitral E to LV E' Septal Ratio 12.0 PV Peak Velocity 84.8 cm/s PV Peak Gradient 2.9 mmHg FINDINGS Left Ventricle Normal left ventricular size, wall thickness, systolic function with no obvious regional wall motion abnormalities. Normal left ventricular diastolic filling pattern for age. The ejection fraction is visually estimated at 65 %. Right Ventricle The right ventricle is normal in size and systolic function. The estimated right ventricular systolic pressure can not be determined due to innadequate Doppler signal. Left Atrium The left atrium is normal by two-dimensional, color flow and Doppler imaging with no structural abnormalities, no thrombus formation present. Right Atrium The right atrium is normal by two-dimensional imaging, color flow and Doppler imaging with no structural abnormalities, no thrombus formation present. Atrial Septum The interatrial septum appears normal with no evidence of a shunt. Aorta The aorta is normal by two-dimensional, color flow and Doppler interrogation. Mitral Valve The mitral valve annulus is mildly calcified. There is no significant mitral valve regurgitation, stenosis or prolapse. Aortic Valve The aortic valve is trileaflet and mildly calcified. There is no significant aortic valve regurgitation. Tricuspid Valve The tricuspid valve is normal by two-dimensional, color flow and Doppler interrogation. There is no significant tricuspid valve regurgitation. Pulmonic Valve The pulmonic valve is not well visualized. There is no significant pulmonic valve regurgitation. Vessels The pulmonary artery appears normal. The inferior vena cava pulmonary and hepatic veins appear normal. Pericardium The pericardium is normal by two-dimensional imaging. There is no significant pericardial effusion. CONCLUSIONS Indications: CVA Technically Difficult Study. Normal LV size and function. Estimated EF 60-65%. Stage 1 diastolic function. Normal RV size and function. Mild MAC. Mild AV sclerosis without stenosis, No pericardial effusion. Mitch Stevensumanparmindera (Electronically Signed) Final Date: 17 December 2024 17:40
[2024-12-16 10:50] LABS: Collection Type, Urine Catheter
--- NOTE | 2024-12-16 10:52 | ESHP_ITS ---
<Statement entered by Rebecca Mccracken MD - 12/25/24 07:48> I reviewed above note and agree with findings and plans. I have also personally examined the patient with medicine team and went over assessment and plan with medical team including international trade manager and resident physician. Documentation for date of: 12/16/24 HPI History of Present Illness Chief complaint: Weakness, slurred speech History of present illness: Mr. Jenkins is a 84-year-old male with past medical history of hypertension, hyperlipidemia, COPD, atrial fibrillation, coronary artery disease and diabetes mellitus who was brought in by ambulance to [facility] emergency department on December 16, 2024. Patient is a poor historian, and stepdaughter at bedside assisted providing history. According to the patient he was in the emergency department yesterday for weakness and nonsyncopal related fall without injuries, was discharged went home had another fall secondary to weakness, he was talking to his son on the phone, according to the son he sounded funny had slurred speech. Per family at bedside patient did not have right-sided facial droop prior, no CVA noted in the past. Complains of some right-sided weakness and otherwise has no current complaints. Patient is on Eliquis at home for atrial fibrillation. He denies any chest pain, shortness of breath and headache. ED Course: ED Vitals: On presentation in ED blood pressure 160/90 0, heart rate 74, respiratory rate 16, temp 97.5, O2 sat 96 on room air ED Labs: ED labs pertinent for hemoglobin 13.4, hematocrit 39.2, glucose 162, globulin 2.2. Urinalysis negative for bacteria, urine drug screen negative ED Imaging:CT scan of head negative for any hemorrhage, mass effect or midline shift. Head and neck CTA shows 80% stenosis of right internal carotid, 80% stenosis of left internal carotid and 50% stenosis proximal M1 segment right middle cerebral artery. EKG in ED showed sinus rhythm. ED Treatment: Patient received maintenance fluid NS 1 L in ED, aspirin 325 p.o. x 1 teleneurology was consulted recommended admission for stroke workup, neurochecks, bedside swallow eval, DVT prophylaxis, IV fluids, head of bed elevated 30 degrees, euglycemia and avoid hyperthermia, initiating aspirin daily, MRI, TTE, lipid panel and hemoglobin A1c with ST OT PT evaluation Review of Systems Review of Systems Narrative Review of Systems: MEEK: -CONSTITUTIONAL: Denies weight loss, fever and chills. Positive for generalized weakness -HEENT: Denies changes in vision and hearing. -RESPIRATORY: Denies SOB and cough. -CV: Denies palpitations and Chest Pain. -GI: Denies abdominal pain, nausea, vomiting,constipation and diarrhea. -: Denies dysuria and urinary frequency. -MSK: Denies myalgia and joint pain. Positive for right-sided facial droop and weakness -SKIN: Denies rash and pruritus. -NEUROLOGICAL: Denies headache and syncope. -PSYCHIATRIC: Denies recent changes in mood. Denies anxiety and depression. Past Medical History Past Medical History Comments PMH COMMENT: PMH: As above PSHx: Coronary artery disease s/p stent, tonsillectomy Allergies: No known allergies Social history: -Smoking: Positive for smoking, more than 40 pack years -Alcohol Use: Positive for alcohol use in past -Illicit Drug Use: Denies -Martial Status: , lives with in [place] Family History: Denies any pertinent family history Exam Vital Signs Temp Pulse Resp BP Pulse Ox O2 Del Method 97.5 F 64 21 H 167/83 H 95 Room Air 12/16/24 08:06 12/16/24 10:00 12/16/24 10:00 12/16/24 10:00 12/16/24 10:00 12/16/24 08:06 Narrative Exam Physical Exam General: Awake and in no acute distress. Conversational and non-toxic appearing. Dysarthria noted, right-sided facial droop noted HEENT: Normocephalic, atraumatic, mucous membranes moist. Heart: Regular rate and rhythm, no murmurs. Lungs: Clear to auscultation with no wheezing or crackles. Abdomen: Soft, nondistended, nontender, positive bowel sounds. ?No guarding or rebound tenderness. Neurologic: Alert and oriented x3, no gross neurological deficit, and patient able to move all 4 extremities. Equal strength noted bilateral extremities. Extremities: No edema. Skin: No rash or ecchymoses. Results: Labs 12/16/24 08:15 12/16/24 08:15 Labs: Short CBC 12/16/24 Range/Units 08:15 WBC 8.6 (3.8-10.6) Thou/mm3 Hgb 13.4 L (13.5-16.0) g/dL Hct 39.2 L (41.0-53.0) % Plt Count 182 (140-440) Thou/mm3 BMP 12/16/24 08:15 Sodium 138 Potassium 4.0 Chloride 102 Carbon Dioxide 27.9 BUN 15 Creatinine 1.0 Glucose 162 H D Calcium 8.8 Cardiac Enzymes 12/16/24 Range/Units 08:15 Troponin I < 0.020 (0.0-0.045) ng/mL Liver Function 12/16/24 Range/Units 08:15 Total Bilirubin 0.4 (0.3-1.2) mg/dL AST 17 (0-34) U/L ALT 14 (10-49) U/L Alkaline Phosphatase 85 (46-116) U/L Albumin 4.3 (3.4-4.8) gm/dL Quality Measures Quality Measures none Advance care planning discussed with:: patient, spouse and child Medications Home Medications and Allergies Home Medications ?Medication ?Instructions ?Recorded ?Confirmed ?Type atorvastatin 80 mg tablet 80 mg PO HS 08/18/18 5 History hydroxyzine HCl 25 mg tablet 25 mg PO DAILY 08/18/18 0 12/16/24 History lisinopril 20 mg tablet 20 mg PO QDAY 08/18/1812/16 History calcium 600 mg (as 1 tab PO QDAY 12/16/2412/16 History carbonate)-vitamin D3 10 mcg (400 unit) tablet (Calcium 600 + D(3)) clobetasol 0.05 % scalp solution 1 applic topical .as needed 12/16/24 12/16/24 History cyanocobalamin (vitamin B-12) 1,000 mcg subcut QMONTH 12/16/24 12/16/24 History 1,000 mcg/mL injection solution diclofenac sodium 1 % topical gel 2 g topical QID PRN pain 12/16/24 12/16/24 History hydroxyzine HCl 10 mg tablet 10 mg PO HS PRN itching 0 12/16/24 12/16/24 History Allergies Allergy/AdvReac Type Severity Reaction Status Date / Time No Known Allergies Allergy Verified 06/12/24 14:27 Visit Medications Acetaminophen (Acetaminophen 325 Mg Tablet) 650 mg PO Q6H PRN PRN Reason: Pain (1-3) & Fever >100.4 Stop: 01/15/25 10:22 Albuterol/Ipratropium (Albuterol/Ipratropium (Duoneb) Rt Brenda 3 Ml Nebu) 3 ml INH Q2HR PRN PRN Reason: SHORTNESS OF BREATH OR WHEEZE Stop: 01/15/25 10:20 Aspirin (Aspirin Ec 81 Mg Tabec) 81 mg PO QDAY SHYLA Stop: 01/16/25 08:59 Atorvastatin Calcium (Atorvastatin Calcium 20 Mg Tablet) 80 mg PO HS [facility] Stop: 01/15/25 20:59 Dextrose (Dextrose 50%-Water Inj 50 Ml Syringe) 25 ml IV Q15MIN PRN PRN Reason: BG 50-70 responsive npo pt Stop: 01/15/25 10:45 Dextrose (Dextrose 50%-Water Inj 50 Ml Syringe) 50 ml IV Q15MIN PRN PRN Reason: BG <50 OR BG <70 & pt unresponsive Stop: 01/15/25 10:45 Glucagon (Glucagon Inj 1 Mg Vial) 1 mg IM Q15MIN PRN PRN Reason: BG <70, and no IV access Heparin Sodium (Porcine) (Heparin Sod Inj 5000 Unit/Ml Vial) 5,000 unit SC Q12H [facility] Stop: 12/30/24 20:59 Insulin Human Lispro (Insulin Lispro (Admelog) 1 Unit/0.01 Ml Unit) 0 unit SC AC [facility]; Protocol Stop: 01/15/25 11:29 Morphine Sulfate (Morphine Sulf Inj 10 Mg/Ml Vial) 1 mg IVP Q4H PRN PRN Reason: PAIN SCALE 7-10 (Severe Stop: 12/21/24 10:22 Ondansetron HCl (Ondansetron Inj 2 Mg/Ml Inj 2 Ml) 4 mg IVP Q4HR PRN PRN Reason: NAUSEA OR VOMITING Stop: 01/15/25 07:39 Pantoprazole Sodium (Pantoprazole Inj 40 Mg Vial) 40 mg IVP QDAY [facility] Stop: 01/15/25 10:29 Discontinued Medications Aspirin (Aspirin 325 Mg Tablet) 325 mg PO X1 ONE Stop: 12/16/24 08:22 Last Admin: 12/16/24 08:31 Dose: 325 mg Sodium Chloride (Ns) 1,000 mls @ 100 mls/hr IV Q10H [facility] Stop: 12/16/24 10:21 Last Infusion: 12/16/24 09:19 Dose: 100 mls/hr Assessment & Plan Plan Assessment and plan: Summary: Mr. Jenkins is a 84-year-old male with past medical history of hypertension, hyperlipidemia, COPD, atrial fibrillation, coronary artery disease and diabetes mellitus who was brought in by ambulance to [facility] emergency department on December 16, 2024. Patient admitted to hospital for CVA workup. #Dysarthria, right-sided facial droop #CVA workup Patient found to have right-sided facial droop and dysarthria, was evaluated in the ED yesterday, no symptoms noted. Patient also had a fall at home earlier today secondary to weakness, on exam today no significant right-sided weakness noted. CT scan of head negative in ED, CTA shows 80% stenosis of right internal carotid, 80% stenosis of left internal carotid and 50% stenosis proximal M1 segment right middle cerebral artery Patient received maintenance fluid NS 1 L in ED, aspirin 325 p.o. x 1 teleneurology was consulted recommended admission for stroke workup, neurochecks, bedside swallow eval, DVT prophylaxis, IV fluids, head of bed elevated 30 degrees, euglycemia and avoid hyperthermia, initiating aspirin daily, MRI, TTE, lipid panel and hemoglobin A1c with ST OT PT evaluation Plan: - Aspirin 81 mg daily - Hold Eliquis, pending neurology recommendations, currently patient in sinus - Atorvastatin 80 mg at bedtime - Ordered MRI stroke protocol - Ordered TTE - Follow lipid panel, TSH and A1c in a.m. - Patient failed bedside swallow, speech therapy evaluated recommended dysphagia diet - Referral to physical therapy - Head of bed elevated 30 degrees - Maintain euglycemia and avoid hyperthermia - Permissive hypertension for 24 hours - Consulted neurology, appreciate recommendations #Diabetes mellitus Patient on metformin 1000 twice daily - Sliding scale insulin - Hypoglycemia protocol - Follow A1c in a.m. #Hypertension #Hyperlipidemia #Atrial fibrillation, by history #Coronary artery disease #COPD Patient on lisinopril 20 mg daily for blood pressure management, hydroxyzine 25 p.o. daily and Eliquis 5 mg p.o. twice daily - Will allow permissive hypertension for now - Continue atorvastatin 80 mg at bedtime - Hold Eliquis, pending neurology recommendations - DuoNeb as needed - Resume home dose hydroxyzine DVT prophylaxis: Heparin Q12 GI prophylaxis: IV Protonix Diet: Dysphagia diet 1, moderately thickened, cardiac Lines: Peripheral IV Code status: Full code Case discussed with Attending Dr. Mccracken. Marcela Shaw PGY1 Disclaimer: This note was dictated by speech recognition. Minor errors in shower doors and panels fabricator may be present due to voice recognition software.
[2024-12-16 11:02] LABS: Bilirubin,Urine Negative (Negative); Blood,Urine Negative (Negative); Clarity,Urine Clear (Clear/Hazy); Color,Urine Lt-Yellow (Lt Yel-Yel); Glucose, Urine Negative (Negative); Hyaline Casts,Urine < 1 /hpf (0-1); Ketones,Urine Negative (Negative); Leukocyte Esterase,Urine Negative (Negative); Nitrite,Urine Negative (Negative); Protein,Urine Negative (Neg - Trace); RBC,Urine 2 /hpf (0-3); Specific Gravity,Urine 1.019 (1.001-1.035); Squamous Epithelial Cell,Urine < 1 /hpf (0-5); Urobilinogen,Urine Negative mg/dL (0.0-1.0); WBC,Urine 2 /hpf (0-5)
[2024-12-16 11:12] LABS: Amphetamine/Methamp Scrn,U Negative (Negative); Barbiturate Screen,Urine Negative (Negative); Benzodiazepines Screen,Urine Negative (Negative); Benzoylecgonine Screen, Ur Negative (Negative); Fentanyl Screen,Urine Negative (Negative); Opiate Screen,Urine Negative (Negative); THC Screen,Urine Negative (Negative)
[2024-12-16] MEDS: PANTOPRAZOLE INJ 40 MG VIAL IVP (12:38)
--- NOTE | 2024-12-16 13:24 | PC.NURSE ---
Family member will bring med list
--- NOTE | 2024-12-16 17:13 | PC.SS ---
GROOVER AND TURNER confirmed with patient that POC is daughter, Trixie Akhtar. Present with patient at time of POC confirmation were daughters, Elza Hull and Zonia Trish . [employer]OOVER [employer] TURNER obtained contact information for patient's son, Alberto Jenkins .
--- NOTE | 2024-12-16 20:08 | PC.NURSE ---
DR. ADRIAN MADE AWARE OF MRI BRAIN RESULTS. NO NEW ORDERS.
[2024-12-16] MEDS: ATORVASTATIN CALCIUM 20 MG TABLET 80 MG PO (20:52)
[2024-12-16] MEDS: HEPARIN SOD INJ 5000 UNIT/ML VIAL SC (20:53)
--- NOTE | 2024-12-16 22:52 | VVPN_ITS ---
Telemedicine visit statement This visit was conducted with the use of interactive audio and video telecommunications system that permits real time communication between the patient and the provider. Patient's verbal consent for virtual visit was obtained on 12/16/24 at 2252. Documentation for date of: 12/16/24 Virtual exam Vital Signs Temp Pulse Resp BP Pulse Ox O2 Del Method O2 Flow Rate 97.4 F 65 20 146/78 H 99 Room Air 0 12/16/24 20:00 12/16/24 20:00 12/16/24 20:00 12/16/24 20:00 12/16/24 20:00 12/16/24 20:00 12/16/24 11:21 Objective Labs 12/16/24 08:15 12/16/24 08:15 Labs: Laboratory Results - last 24 hr 12/16/24 12/16/24 08:15 10:28 WBC 8.6 RBC 4.61 Hgb 13.4 L Hct 39.2 L MCV 85 MCH 29.1 MCHC 34.2 RDW Std Deviation 45.5 H Plt Count 182 Neut % (Auto) 75 Lymph % (Auto) 15 Boundary % (Auto) 9 Eos % (Auto) 1 Baso % (Auto) 0 Neut # (Auto) 6.4 Lymph # (Auto) 1.3 Boundary # (Auto) 0.8 Eos # (Auto) 0.1 Baso # (Auto) 0.0 Immature Gran # (Auto) 0.02 H Absolute Nucleated RBC 0.00 Immature Gran % 0 Nucleated RBC % 0 PT 12.2 INR 1.1 APTT 31.9 Sodium 138 Potassium 4.0 Chloride 102 Carbon Dioxide 27.9 Anion Gap 8 BUN 15 Creatinine 1.0 Estim Creat Clear Calc 58.6 L eGFR > 60 BUN/Creatinine Ratio 15 Glucose 162 H D Calculated Osmolality 280 Calcium 8.8 Corrected Calcium 8.8 Magnesium 1.9 Total Bilirubin 0.4 AST 17 ALT 14 Alkaline Phosphatase 85 Troponin I < 0.020 B-Natriuretic Peptide 22 Total Protein 6.5 Albumin 4.3 Globulin 2.2 L Albumin/Globulin Ratio 2.0 Ur Collection Type Catheter Urine Color Lt-Yellow Urine Clarity Clear Urine pH 7.0 Ur Specific [place] 1.019 Urine Protein Negative Urine Glucose (UA) Negative Urine Ketones Negative Urine Blood Negative Urine Nitrite Negative Urine Bilirubin Negative Urine Urobilinogen (Auto) Negative Ur Leukocyte Esterase Negative Urine RBC 2 Urine WBC 2 Ur Squamous Epith Cells < 1 Urine Bacteria None Hyaline Casts < 1 Urine Opiates Screen Negative Urine Fentanyl Screen Negative Ur Barbiturates Screen Negative U Amphetamin/Meth Scrn Negative U Benzodiazepines Scrn Negative U Cocaine Metab Screen Negative U Marijuana (THC) Screen Negative Ethyl Alcohol < 3.0
[2024-12-17] VITALS (10 sets, daily range): BP systolic 107–143; BP diastolic 59–79; PULSE 62–94; RESP 17–97; TEMP 36.3–36.7; O2SAT 94–98; BMI 27.8
[2024-12-17 05:49] LABS: Basophils % (Auto) 0 % (0-2.5); Eosinophils # (Auto) 0.1 Thou/mm3 (0.0-0.5); Eosinophils % (Auto) 1 % (0-10); Hematocrit 37.7 % (41.0-53.0); Hemoglobin 12.8 g/dL (13.5-16.0); Immature Granulocytes % (Auto) 0 % (0-0); Immature Granulocytes Auto 0.02 Thou/mm3 (0.00-0.00); Lymphocytes # (Auto) 1.6 Thou/mm3 (1.0-4.8); Lymphocytes % (Auto) 22 % (10-50); Mean Corpuscular Hemoglobin 29.1 pg (25.0-35.0); Mean Corpuscular Volume 86 fL (80-100); Monocytes # (Auto) 0.7 Thou/mm3 (0.0-0.8); Monocytes % (Auto) 10 % (0-12); Neutrophils # (Auto) 4.7 Thou/mm3 (1.8-7.7); Neutrophils % (Auto) 66 % (37-80); Nucleated Red Blood Cell % 0 /100 WBC (0); Platelet Count 209 Thou/mm3 (140-440); RDW Standard Deviation 45.8 fL (35.1-43.9); White Blood Count 7.2 Thou/mm3 (3.8-10.6)
[2024-12-17 05:55] LABS: INR 1.1 (0.9-1.3); Prothrombin Time 11.9 Seconds (9.0-12.2)
[2024-12-17 06:21] LABS: Glucose Estimated Average 146 mg/dL (80-131); Hemoglobin A1C 6.7 % Hgb (4.8-6.0)
[2024-12-17 06:26] LABS: Anion Gap 8 (7-16); BUN/Creatinine Ratio 11 Ratio (12-20); Blood Urea Nitrogen 10 mg/dL (9-23); Calcium 8.4 mg/dL (8.3-10.6); Carbon Dioxide 26.5 mMol/L (20.0-31.0); Cardiac Risk Estimate 5.7 RATIO (4.0-6.7); Chloride 103 mMol/L (98-107); Cholesterol 194 mg/dL (132-200); Creatinine (Component) 0.9 mg/dL (0.6-1.3); Estimated Creatinine Clearance 65.1 mL/min (>60); Glucose 122 mg/dL (74-106); HDL Cholesterol 34 mg/dL (40-60); LDL Cholesterol,Calculated 126 mg/dL (0-130); Magnesium 1.9 mg/dL (1.6-2.6); Osmolality,Calculated 273 (275-295); Potassium 3.8 mMol/L (3.4-5.1); Sodium 137 mMol/L (136-145); Thyroid Stimulating Hormone 1.44 uIU/mL (0.55-4.78); Triglycerides 170 mg/dL (30-150); eGFR > 60 See Note
[2024-12-17] MEDS: ASPIRIN EC 81 MG TABEC PO (08:45)
[2024-12-17] MEDS: hydrOXYzine HCL 25 MG TABLET PO (08:45)
[2024-12-17] MEDS: HEPARIN SOD INJ 5000 UNIT/ML VIAL SC (08:45)
[2024-12-17] MEDS: POTASSIUM CHLORIDE 10% 20 MEQ/15 ML UDC PO (08:45)
[2024-12-17] MEDS: Magnesium Sulfate 2 GM Ivpb 2 GM/50 ML BAG IV (08:45)
[2024-12-17] MEDS: ALBUTEROL/IPRATROPIUM (Duoneb) RT SOL 3 ML NEBU INH (10:37)
[2024-12-17] MEDS: POLYETHYLENE GLYCOL 17 GM PACKET 34 GM PO (11:53)
[2024-12-17] MEDS: SENNA/DOCUSATE SOD 1 TAB TABLET PO (11:53)
--- NOTE | 2024-12-17 13:17 | PD.RESPRO ---
Documentation for date of: 12/17/24 Subjective Subjective Interval history: Patient seen and examined at bedside. MRI was positive for 13 mm caudate nucleus acute infarct. Pending echocardiogram, neurology recommendations to resume Eliquis. Physical therapy evaluated the patient, recommending acute rehab. Patient started on bowel regimen. Patient's LDL 126, goal LDL less than 70, will continue with high intensity atorvastatin. Exam Vital Signs Temp Pulse Resp BP Pulse Ox O2 Del Method O2 Flow Rate 98.0 F 75 21 H 143/79 H 94 L Room Air 0 12/17/24 11:56 12/17/24 12:00 12/17/24 11:56 12/17/24 11:56 12/17/24 11:56 12/17/24 11:56 12/16/24 11:21 Narrative Exam Physical Exam General: Awake and in no acute distress. Conversational and non-toxic appearing. Dysarthria noted-improving, right-sided facial droop-improving HEENT: Normocephalic, atraumatic, mucous membranes moist. Heart: Regular rate and rhythm, no murmurs. Lungs: Clear to auscultation with no wheezing or crackles. Abdomen: Soft, nondistended, nontender, positive bowel sounds. ?No guarding or rebound tenderness. Neurologic: Alert and oriented x3, no gross neurological deficit, and patient able to move all 4 extremities. Equal strength noted bilateral extremities. Extremities: No edema. Skin: No rash or ecchymoses. Objective Labs 12/17/24 04:47 12/17/24 04:47 Labs: Laboratory Results - last 24 hr 12/17/24 04:47 WBC 7.2 RBC 4.40 L Hgb 12.8 L Hct 37.7 L MCV 86 MCH 29.1 MCHC 34.0 RDW Std Deviation 45.8 H Plt Count 209 Neut % (Auto) 66 Lymph % (Auto) 22 Wilkinson % (Auto) 10 Eos % (Auto) 1 Baso % (Auto) 0 Neut # (Auto) 4.7 Lymph # (Auto) 1.6 Wilkinson # (Auto) 0.7 Eos # (Auto) 0.1 Baso # (Auto) 0.0 Immature Gran # (Auto) 0.02 H Absolute Nucleated RBC 0.00 Immature Gran % 0 Nucleated RBC % 0 PT 11.9 INR 1.1 Sodium 137 Potassium 3.8 Chloride 103 Carbon Dioxide 26.5 Anion Gap 8 BUN 10 Creatinine 0.9 Estim Creat Clear Calc 65.1 eGFR > 60 BUN/Creatinine Ratio 11 L Glucose [address] Glu mg/dL 146 H Hemoglobin A1c 6.7 H Calculated Osmolality 273 L Calcium 8.4 Phosphorus 3.0 Magnesium 1.9 Triglycerides 170 H Cholesterol 194 LDL Cholesterol, Calc 126 HDL Cholesterol 34 L Cholesterol/HDL Ratio 5.7 TSH 1.44 Quality Measures Quality Measures none Advance care planning discussed with:: patient Assessment & Plan Assessment Current Active Medications: Generic Name Dose Route Start Last Admin Trade Name Freq PRN Reason Stop Dose Admin Acetaminophen 650 mg 12/16/24 10:23 Acetaminophen 325 Mg Tablet PO 01/15/25 10:22 Q6H PRN Pain (1-3) & Fever >100.4 Hydrocodone Bitart/Acetaminophen 1 tab 12/17/24 08:15 Hydrocodone/Apap 5/325 Tablet PO 12/22/24 08:14 Q6HR PRN PAIN SCALE 4-10(Mod-Sev Albuterol/Ipratropium 3 ml 12/16/24 10:21 12/17/24 10:37 Albuterol/Ipratropium (Duoneb) Rt Brenda 3 Ml Nebu INH 01/15/25 10:20 3 ml Q2HR PRN Administration SHORTNESS OF BREATH OR WHEEZE Aspirin 81 mg 12/17/24 09:00 12/17/24 08:45 Aspirin Ec 81 Mg Tabec PO 01/16/25 08:59 81 mg QDAY SHYLA Administration Atorvastatin Calcium 80 mg 12/16/24 21:00 12/16/24 20:52 Atorvastatin Calcium 20 Mg Tablet PO 01/15/25 20:59 80 mg HS SHYLA Administration Dextrose 25 ml 12/16/24 10:46 Dextrose 50%-Water Inj 50 Ml Syringe IV 01/15/25 10:45 Q15MIN PRN BG 50-70 responsive npo pt Dextrose 50 ml 12/16/24 10:46 Dextrose 50%-Water Inj 50 Ml Syringe IV 01/15/25 10:45 Q15MIN PRN BG <50 OR BG <70 & pt unresponsive Glucagon 1 mg 12/16/24 10:46 Glucagon Inj 1 Mg Vial IM Q15MIN PRN BG <70, and no IV access Heparin Sodium (Porcine) 5,000 unit 12/16/24 21:00 12/17/24 08:45 Heparin Sod Inj 5000 Unit/Ml Vial SC 12/30/24 20:59 5,000 unit Q12H SHYLA Administration Hydroxyzine HCl 25 mg 12/17/24 09:00 12/17/24 08:45 Hydroxyzine Hcl 25 Mg Tablet PO 01/16/25 08:59 25 mg DAILY SHYLA Administration Hydroxyzine HCl 10 mg 12/16/24 15:55 Hydroxyzine Hcl 10 Mg Tablet PO 01/15/25 15:54 HS PRN itching Insulin Human Lispro 0 unit 12/16/24 11:30 12/17/24 11:53 Insulin Lispro (Admelog) 1 Unit/0.01 Ml Unit SC 01/15/25 11:29 Not Given AC SHYLA Protocol Melatonin 3 mg 12/17/24 00:45 12/17/24 05:08 Melatonin 3 Mg Tablet PO 01/16/25 00:44 Not Given HS SHYLA Ondansetron HCl 4 mg 12/16/24 07:40 Ondansetron Inj 2 Mg/Ml Inj 2 Ml IVP 01/15/25 07:39 Q4HR PRN NAUSEA OR VOMITING Polyethylene Glycol 34 gm 12/17/24 09:45 12/17/24 11:53 Polyethylene Glycol 17 Gm Packet PO 01/16/25 09:44 34 gm QDAY SHYLA Administration Sennosides 1 tab 12/17/24 09:45 12/17/24 11:53 Senna/Docusate Sod 1 Tab Tablet PO 01/16/25 09:44 1 tab QDAY SHYLA Administration Protocol Plan Assessment and plan: Summary: Mr. Jenkins is a 84-year-old male with past medical history of hypertension, hyperlipidemia, COPD, atrial fibrillation, coronary artery disease and diabetes mellitus who was brought in by ambulance to [facility] emergency department on December 16, 2024. Patient admitted to hospital for CVA workup. 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 Patient also had a fall at home earlier today secondary to weakness, on exam today no significant right-sided weakness noted. CT scan of head negative in ED, CTA shows 80% stenosis of right internal carotid, 80% stenosis of left internal carotid and 50% stenosis proximal M1 segment right middle cerebral artery Patient received aspirin loading dose in ED, teleneurology was consulted. Permissive hypertension was allowed for 24 hours. MRI 12/16-13 mm acute infarct left caudate nucleus LDL 126, TSH 1.44, A1c 6.7 Plan: - Aspirin 81 mg daily - Hold Eliquis, pending neurology recommendations, currently patient in sinus - Atorvastatin 80 mg at bedtime - Pending TTE - Speech therapy following patient, currently on dysphagia 2 diet - Physical therapy recommends placement to acute rehab - Head of bed elevated 30 degrees - Consulted neurology, appreciate recommendations #Diabetes mellitus, A1c 6.7 Patient on metformin 1000 twice daily - Sliding scale insulin - Hypoglycemia protocol #Hypertension #Hyperlipidemia #Atrial fibrillation, by history #Coronary artery disease #COPD Patient on lisinopril 20 mg daily for blood pressure management, hydroxyzine 25 p.o. daily and Eliquis 5 mg p.o. twice daily - Resumed home dose lisinopril - Continue atorvastatin 80 mg at bedtime - Hold Eliquis, pending neurology recommendations - DuoNeb as needed - Resume home dose hydroxyzine DVT prophylaxis: Heparin Q12 GI prophylaxis: IV Protonix Diet: Dysphagia diet 2, moderately thickened, cardiac Lines: Peripheral IV Code status: Full code Case discussed with Attending Dr. Linton. Marcela Shaw PGY1 Disclaimer: This note was dictated by speech recognition. Minor errors in human resources analyst may be present due to voice recognition software. Attending Provider Attestation/Addendum I have discussed and was present for the essential components of the history, physical examination, diagnosis, and treatment plan with the resident. I agree with the patient's care as documented by the resident and amended herein by me. Pollo Lniton DO. Although this document has been carefully reviewed, there may still be some phonetic and other typographical errors. These errors are purely grammatical due to imperfections in the software program and should not be construed in any way to compromise the substance of the patient's medical care during this visit.
--- NOTE | 2024-12-17 13:45 | PC.PT ---
Patient is safe to ambulate to the bathroom with 1 staff assist and a FWW. RN made aware.
--- NOTE | 2024-12-17 14:37 | PC.SS ---
SKIN PEELING MACHINE OPERATOR conducted bedside contact with the patient conduct initial assessment and to discuss discharge planning.? Patient resides at home with spouse, Heather Jenkins.? Patient is aligned with [facility].? Patient utilizes a walker to assist with ambulation.? Patient utilizes home oxygen.? Patient requires assistance with completion of ADL?s.? Patient receives caregiver services through [facility] Patient confirmed surrogate medical decision maker is step daughter, Trixie Akhtar .? Patient utilizes [facility] for PCP services.? Patient?s finish machine tender is Dr. Plascencia.? Patient possesses urologist unable to identify.? Patient utilizes [facility] for medication services.? Patient is aligned with [facility]; .? Hospice diagnosis is COPD.? Discharge plan is for the patient to transition to acute rehab.? Preferred facility is [facility].? janitorial services supervisor to assist patient with scheduling transportation to facility.? No further discharge needs identified by the patient.? No further intervention required at this time, criminal justice social worker will be available to address any further concerns.? Next of Kin: Trixie Akhtar D/C Plan: Acute Rehab
--- NOTE | 2024-12-17 15:09 | PC.SS ---
PASSR completed. Patient meets Level I criteria. No follow up required.
--- NOTE | 2024-12-17 15:10 | PC.SS ---
Acute Rehab referral submitted on [facility]. Prabhu Wilson; preferred facility. Response pending.
--- NOTE | 2024-12-17 15:12 | PC.SS ---
Patient's daughter, Trixie Akhtar; brought copy of patient's medical POA. Patient's daughter, Trixie Akhtar; is the patient's designated POA for medical. Copy placed in the patient's chart.
--- NOTE | 2024-12-17 15:24 | PC.SS ---
Rounding Note: Echo is pending. Patient to d/c to acute rehab.
[2024-12-17] MEDS: APIXABAN 2.5 MG TABLET 5 MG PO (20:31)
[2024-12-17] MEDS: ATORVASTATIN CALCIUM 20 MG TABLET 80 MG PO (20:31)
[2024-12-17] MEDS: MELATONIN 3 MG TABLET PO (20:31)
--- NOTE | 2024-12-17 23:51 | ESPR_ITS ---
Documentation for date of: 12/17/24 Subjective Subjective Interval history: Seen in telemetry today, no new symptoms reported. Exam - Neurology Vital Signs Temp Pulse Resp BP Pulse Ox O2 Del Method O2 Flow Rate 97.3 F 94 27 H 116/67 96 Room Air 0 12/17/24 20:00 12/17/24 20:00 12/17/24 20:00 12/17/24 20:00 12/17/24 20:00 12/17/24 20:00 12/16/24 11:21 Narrative Exam GENERAL APPEARANCE: Well developed, well-nourished in no acute distress. HEENT: Normocephalic, atraumatic, extraocular movements intact. Pupils: Equal reacting to light and accommodation NECK: Supple, no JVD or bruits. CARDIOVASULAR: Heart: S1, S2 heard, irregular without S3-S4 or murmur no rubs or gallops. LUNGS/CHEST: Clear to auscultation bilaterally. No rails, rhonchi, or wheezing. Normal inspection. ABDOMEN: Soft, nontender, with normal bowel sounds. No pulsatile masses. No rebound, rigidity, or guarding. Normal inspection and palpation. EXTREMITIES: Normal inspection and palpation. No edema, clubbing or cyanosis. SKIN: Warm and dry without rashes. Normal inspection. MUSCULOSKELETAL: No cervical, thoracic, lumbar or midline bony tenderness. Normal inspection. NEURO: Alert, awake and oriented x3. Cranial nerves: II through XII grossly intact. Speech and language: Normal with no dysarthria or dysphasia. Motor system: Tone and bulk: Normal: Strength: 5 out of 5 in all 4 extremities with exception of mildly restricted range of motion involving the left shoulder; No pronator drift noted. Deep tendon reflexes: 2+ bilaterally symmetrical. Plantar reflex: Downgoing bilaterally. Sensory system: Intact to all modalities of sensation bilaterally. Coordination: Intact to kuwlyq-ltzf-ugydn and onjd-clmn-jpzi test bilaterally. No ataxia, no dysmetria, or dysdiadochokinesia noted. No intention tremors noted. Gait: not tested. No signs of meningeal irritation noted. PSYCHIATRIC: normal mood and affect. Objective Labs 12/18/24 07:05 12/18/24 09:30 Labs: Laboratory Results - last 24 hr 12/17/24 04:47 WBC 7.2 RBC 4.40 L Hgb 12.8 L Hct 37.7 L MCV 86 MCH 29.1 MCHC 34.0 RDW Std Deviation 45.8 H Plt Count 209 Neut % (Auto) 66 Lymph % (Auto) 22 [place] % (Auto) 10 Eos % (Auto) 1 Baso % (Auto) 0 Neut # (Auto) 4.7 Lymph # (Auto) 1.6 [place] # (Auto) 0.7 Eos # (Auto) 0.1 Baso # (Auto) 0.0 Immature Gran # (Auto) 0.02 H Absolute Nucleated RBC 0.00 Immature Gran % 0 Nucleated RBC % 0 PT 11.9 INR 1.1 Sodium 137 Potassium 3.8 Chloride 103 Carbon Dioxide 26.5 Anion Gap 8 BUN 10 Creatinine 0.9 Estim Creat Clear Calc 65.1 eGFR > 60 BUN/Creatinine Ratio 11 L Glucose [address] Glu mg/dL 146 H Hemoglobin A1c 6.7 H Calculated Osmolality 273 L Calcium 8.4 Phosphorus 3.0 Magnesium 1.9 Triglycerides 170 H Cholesterol 194 LDL Cholesterol, Calc 126 HDL Cholesterol 34 L Cholesterol/HDL Ratio 5.7 TSH 1.44
[2024-12-18] VITALS (7 sets, daily range): BP systolic 145–163; BP diastolic 71–98; PULSE 55–74; RESP 17–92; TEMP 36.1–36.5; O2SAT 92–97
[2024-12-18 06:54] LABS: Anion Gap 13 (7-16); BUN/Creatinine Ratio 14 Ratio (12-20); Blood Urea Nitrogen 13 mg/dL (9-23); Calcium 8.3 mg/dL (8.3-10.6); Carbon Dioxide 20.9 mMol/L (20.0-31.0); Chloride 104 mMol/L (98-107); Creatinine (Component) 0.9 mg/dL (0.6-1.3); Estimated Creatinine Clearance 65.3 mL/min (>60); Glucose 115 mg/dL (74-106); Magnesium 2.2 mg/dL (1.6-2.6); Osmolality,Calculated 276 (275-295); Phosphorous 3.3 mg/dL (2.4-5.1); Potassium 5.3 mMol/L (3.4-5.1); Sodium 138 mMol/L (136-145); eGFR > 60 See Note
[2024-12-18 07:12] LABS: Basophils % (Auto) 1 % (0-2.5); Eosinophils # (Auto) 0.1 Thou/mm3 (0.0-0.5); Eosinophils % (Auto) 1 % (0-10); Hematocrit 38.2 % (41.0-53.0); Hemoglobin 13.2 g/dL (13.5-16.0); Immature Granulocytes % (Auto) 0 % (0-0); Immature Granulocytes Auto 0.02 Thou/mm3 (0.00-0.00); Lymphocytes # (Auto) 1.6 Thou/mm3 (1.0-4.8); Lymphocytes % (Auto) 21 % (10-50); Mean Corpuscular HGB Conc 34.6 g/dl (31.0-37.0); Mean Corpuscular Hemoglobin 29.3 pg (25.0-35.0); Mean Corpuscular Volume 85 fL (80-100); Monocytes # (Auto) 0.7 Thou/mm3 (0.0-0.8); Monocytes % (Auto) 10 % (0-12); Neutrophils # (Auto) 5.1 Thou/mm3 (1.8-7.7); Neutrophils % (Auto) 68 % (37-80); Nucleated Red Blood Cell % 0 /100 WBC (0); Platelet Count 208 Thou/mm3 (140-440); RDW Standard Deviation 45.5 fL (35.1-43.9); Red Blood Count 4.51 Miln/mm3 (4.50-5.90); White Blood Count 7.5 Thou/mm3 (3.8-10.6)
[2024-12-18] MEDS: CALCIUM GLUCONATE 10% INJ 1 GM/10 ML VIAL IV (08:55)
[2024-12-18] MEDS: amLODIPine BESYLATE 5 MG TABLET 10 MG PO (08:55)
[2024-12-18] MEDS: SENNA/DOCUSATE SOD 1 TAB TABLET PO (08:55)
[2024-12-18] MEDS: hydrOXYzine HCL 25 MG TABLET PO (08:55)
[2024-12-18] MEDS: APIXABAN 2.5 MG TABLET 5 MG PO (08:57)
[2024-12-18] MEDS: ASPIRIN EC 81 MG TABEC PO (08:57)
[2024-12-18] MEDS: SOD POLYSTYRENE SULFON SUSP 15 GM/60 ML BTL 30 GM PO (09:01)
--- NOTE | 2024-12-18 12:20 | PC.SS ---
FURNITURE CLEANER confirmed that [facility] will provide transportation on behalf of the patient. Transport time is pending. FURNITURE CLEANER informed patient and family plan to transition patient to acute rehab today. Patient confirmed discharge plan.
--- NOTE | 2024-12-18 13:16 | PC.SS ---
Update: Plan is to d/c patient to Acute Rehab today.
--- NOTE | 2024-12-18 13:17 | ESDS_ITS ---
Planned Discharge Date 12/18/24 DS: Providers Provider Date of admission: 12/16/24 09:40 Primary care physician: Physician No Primary/Family Admitting Provider: Rebecca Mccracken MD Attending Provider on Admission: Octavio Linton DO Consults: 12/16/24 07:40 Consult to Neurology / Tele-Neurology Routine Comment: Consulting Provider: [facility] 12/16/24 10:26 Consult to Neurology / Tele-Neurology Routine Comment: CVA Workup Consulting Provider: Titi Rodríguez 12/16/24 10:27 Referral Physical Therapy Routine Comment: Physician Instructions: Instructions: CVA Workup Referral Speech Therapy Routine Comment: Instructions: CVA Workup Attending Provider on DC: Octavio Linton DO Discharging Provider: Octavio Linton DO Anticipated date of discharge: 12/18/24 DS: Diagnosis Problem List Completed Was Problem List Reviewed/Reconciled?: Yes Hospital Course Hospital Course Hospital course: Hospital course: Mr. Jenkins is a 84-year-old male with past medical history of atrial fibrillation (follows Dr. Israel), hypertension, hyperlipidemia, COPD, coronary artery disease and diabetes mellitus who was brought in by ambulance to [facility] on December 16, 2024 with a chief complaint of right- sided facial droop, right-sided weakness and dysarthria. Patient is status post fall secondary to weakness as well, on presentation in ED stroke alert was called, teleneuro consulted, CT scan of the head was negative, CTA showed 80% stenosis of right internal carotid, 80% stenosis of left internal carotid and 50% stenosis proximal M1 segment right middle cerebral artery. 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 Patient was started on aspirin, Home Eliquis was resumed as there was no evidence of bleeding after clarification and neurology. Patient was assessed by speech and physical therapy, with the progression of hospital course patient condition improved. Further plan is to discharge patient to acute rehab, patient to follow-up outpatient with neurology in 1 to 2 weeks, patient to follow-up with cardiology outpatient. Recommended to obtain vascular surgery consultation for stenosis. Patient is otherwise stable for discharge, responded well to hospital treatment. 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 Linton. Marcela Shaw PGY1 Disclaimer: This note was dictated by speech recognition. Minor errors in maternal child nurse may be present due to voice recognition software. Status at Discharge Overall status at discharge: patient is progressing back to baseline Time Spent with Patient Time attestation: Total time spent providing and/or coordinating discharge services: Time spent: Greater than 30 minutes Quality: Stroke Pt Provided Written Stroke Discharge Instructions: Yes Exam Vital Signs Temp Pulse Resp BP Pulse Ox O2 Del Method O2 Flow Rate 97.7 F 74 21 H 151/86 H 96 Room Air 0 12/18/24 12:00 12/18/24 12:00 12/18/24 12:00 12/18/24 12:00 12/18/24 12:00 12/18/24 12:00 12/16/24 11:21 Narrative Exam Physical Exam General: Awake and in no acute distress. Conversational and non-toxic appearing. Dysarthria noted-improving, right-sided facial droop-improving HEENT: Normocephalic, atraumatic, mucous membranes moist. Heart: Regular rate and rhythm, no murmurs. Lungs: Clear to auscultation with no wheezing or crackles. Abdomen: Soft, nondistended, nontender, positive bowel sounds. ?No guarding or rebound tenderness. Neurologic: Alert and oriented x3, no gross neurological deficit, and patient able to move all 4 extremities. Equal strength noted bilateral extremities. Extremities: No edema. Skin: No rash or ecchymoses. Discharge Plan Plan Patient Disposition: [facility] Patient condition on transfer: Stable Care Plan Goals: Continue aspirin and Eliquis daily for stroke prevention. Follow-up with neurologist in 1 to 2 weeks. Continue physical therapy and speech therapy. Continue atorvastatin 80 mg at bedtime for hyperlipidemia management, LDL goal less than 70, follow-up outpatient with primary care physician for adequate management. Continue all other home medications. Follow-up with primary care physician in 1 to 2 weeks. Recommend anemia workup outpatient. Continue metformin for diabetes management. Follow-up outpatient with primary care physician for optimization of diabetes therapy. Obtain outpatient workup for Carotid Stenosis. Return to ED if symptoms return or worsen. Prescriptions/Referrals Prescriptions/Med Rec: New aspirin 81 mg Tablet,Delayed Release (Dr/Ec) 81 mg PO QDAY 30 Days Qty: 30 0RF ipratropium-albuterol 0.5 mg-3 mg(2.5 mg base)/3 mL Solution For Nebulization 3 ml INH Q2HR PRN (Reason: Shortness Of Breath Or Wheeze) Qty: 0 0RF umeclidinium-vilanterol [Anoro Ellipta] 62.5-25 mcg/actuation blister with device 1 inh inhalation Q24H Qty: 60 0RF Continued atorvastatin 80 mg Tablet 80 mg PO HS lisinopril 20 mg Tablet 20 mg PO QDAY hydroxyzine HCl 25 mg Tablet 25 mg PO DAILY Eliquis 5 mg tablet 5 mg PO BID Qty: 60 0RF metformin 1,000 mg tablet 1,000 mg PO BID Qty: 60 0RF calcium carbonate-vitamin D3 [Calcium 600 + D(3)] 600 mg-10 mcg (400 unit) tablet 1 tab PO QDAY clobetasol 0.05 % solution 1 applic TOPICAL .as needed Patient Comments: APPLY 6 DROPS TO AFFECTED AREA ON SCALP EVERY DAY FOR 2 WEEKS THEN NEEDED cyanocobalamin (vitamin B-12) 1,000 mcg/mL solution 1,000 mcg subcut QMONTH diclofenac sodium 1 % gel 2 g TOPICAL QID PRN (Reason: pain) Patient Comments: APPLY 2 GRAMS TO THE AFFECTED AREA(S) BY TOPICAL ROUTE 4 TIMES PER DAY NEEDED FOR PAIN hydroxyzine HCl 10 mg tablet 10 mg PO HS PRN (Reason: itching) Patient Comments: TAKE 1 TO 2 TABLETS BY MOUTH AT BEDTIME NEEDED FOR ITCHING Referrals: No Primary/Family,Physician [Primary Care Provider] - Titi Rodríguez MD [Physician] - Patient/Caregiver Discharge Instructions Discharge Activity: as per physical therapy Education Materials: LDL Cholesterol, Using Blood Thinners Anticoagulants, Hype rtension Stroke Link, Diabetes: Activity Tips, Discharge Instructions for Stroke, Prevention Guidelines Men Ages 65 ... Print Language: Indonesian Stand Alone Forms: Marilyn Award Info., Patient Portal Info Letter Discharge Order Discharge Orders: Discharge (Routine); Ordered 12/18/24 Ordered By: Marcela Shaw Quality Discharge Quality Measures VTE prophylaxis Attestestation Attestation I have discussed and was present for the essential components of the discharge history, physical examination, diagnosis, and discharge treatment plan with the resident. I agree with the patient's discharge care as documented by the resident and amended herein by me. Pollo Linton DO. The patient understood all discharge instructions, all questions were answered satisfactorily. The patient was instructed to return to the Emergency Department is symptoms worsened or persisted. Patient discharged on aspirin, high intensity statin and will continue Eliquis. Patient was stable, afebrile and tolerating p.o. intake at time of discharge to SNF. See resident note above for additional details in regards to this hospital admission. Although this document has been carefully reviewed, there may still be some phonetic and other typographical errors. These errors are purely grammatical due to imperfections in the software program and should not be construed in any way to compromise the substance of the patient's medical care during this visit.
--- NOTE | 2024-12-18 16:22 | PC.SS ---
DELIVERY RECRUITER contacted patient's family to provide update on transport time. Bedside notified and provided number to provide nurses report.
--- NOTE | 2024-12-18 17:41 | PC.NURSE ---
report given to ЮЛИЯ Monteiro at [facility] @[phone]. d/c packet sent with patient patient to facility
--- NOTE | 2024-12-18 23:28 | PD.VPROG1 ---
Telemedicine visit statement This visit was conducted with the use of phone visit was obtained on 12/18/24. Documentation for date of: 12/18/24 Subjective Subjective Interval history: Patient is in telemetry today, his generalized weakness is improving. No new symptoms reported. Virtual exam Vital Signs Temp Pulse Resp BP Pulse Ox O2 Del Method O2 Flow Rate 97.6 F 67 22 H 148/73 H 95 Room Air 0 12/18/24 16:00 12/18/24 16:00 12/18/24 16:00 12/18/24 16:00 12/18/24 16:00 12/18/24 16:00 12/16/24 11:21 Objective Labs 12/18/24 07:05 12/18/24 09:30 Labs: Laboratory Results - last 24 hr 12/18/24 12/18/24 12/18/24 04:34 07:05 09:30 WBC 7.5 RBC 4.51 Hgb 13.2 L Hct 38.2 L MCV 85 MCH 29.3 MCHC 34.6 RDW Std Deviation 45.5 H Plt Count 208 Neut % (Auto) 68 Lymph % (Auto) 21 [place] % (Auto) 10 Eos % (Auto) 1 Baso % (Auto) 1 Neut # (Auto) 5.1 Lymph # (Auto) 1.6 [place] # (Auto) 0.7 Eos # (Auto) 0.1 Baso # (Auto) 0.0 Immature Gran # (Auto) 0.02 H Absolute Nucleated RBC 0.00 Immature Gran % 0 Nucleated RBC % 0 Sodium 138 Potassium 5.3 H D 4.0 D Chloride 104 Carbon Dioxide 20.9 Anion Gap 13 BUN 13 Creatinine 0.9 Estim Creat Clear Calc 65.3 eGFR > 60 BUN/Creatinine Ratio 14 Glucose 115 H Calculated Osmolality 276 Calcium 8.3 Phosphorus 3.3 Magnesium 2.2 Assessment & Plan Problem List (1) Acute CVA (cerebrovascular accident): Status: Acute Assessment and plan: MRI brain: acute infarction in the left basal ganglia Echo: normal study Continue with asa and Eliquis (2) Generalized weakness: Status: Acute Assessment and plan: resolving, will benefit from rehab short term (3) Essential hypertriglyceridemia: Status: Chronic Assessment and plan: continue with statin (4) Diabetes mellitus: Status: Chronic Assessment and plan: continue with diet control and metformin (5) Atrial fibrillation: Status: Chronic Assessment and plan: continue with rate control and eliquis
== END 2024-12-18 17:40 | DRG 65 ==
LOC: SERX 08:36 → SERHOLD 10:00 → S2NX 12:59
PROVIDERS: Admitting Provider Internal Medicine; Emergency Provider Family Medicine; Visit Provider Student in an Organized Health Care Education/Training Program
DX: I63.81 Other cerebral infarction due to occlusion or stenosis of small artery (principal); G81.91 Hemiplegia, unspecified affecting right dominant side; I10 Essential (primary) hypertension; E11.9 Type 2 diabetes mellitus without complications; Z79.84 Long term (current) use of oral hypoglycemic drugs; E78.5 Hyperlipidemia, unspecified; J44.9 Chronic obstructive pulmonary disease, unspecified; I48.91 Unspecified atrial fibrillation; I25.10 Atherosclerotic heart disease of native coronary artery without angina pectoris; I65.23 Occlusion and stenosis of bilateral carotid arteries; R29.810 Facial weakness; Z95.5 Presence of coronary angioplasty implant and graft; Z79.01 Long term (current) use of anticoagulants; Y92.009 Unspecified place in unspecified non-institutional (private) residence as the place of occurrence of the external cause; Z79.82 Long term (current) use of aspirin; R47.1 Dysarthria and anarthria; Z79.899 Other long term (current) drug therapy; Z87.891 Personal history of nicotine dependence; W19.XXXA Unspecified fall, initial encounter; R29.702 NIHSS score 2
CPT/HCPCS: 36415; 70450; 70496; 70498; 70544; 73502; 80048; 80053; 80061; 80069; 80307; 80320; 81001; 83036; 83735; 83880; 84100; 84132; 84443; 84484; 85025; 85610; 85730; 87086; 92526; 92610; 93005; 93306; 94640; 96361; 96374; 97162; 99285; A4649; A9270; J0612; J1644; J2470; J3475; J7030; Q9967; G0480

== ENCOUNTER 2025-03-18 10:28 | Day surgery (SDC) | payer MEDICARE, SELFPAY ==
[2025-03-09 12:58] VITALS: BMI 27.3
--- NOTE | 2025-03-17 07:00 | EKG_ITS ---
[facility] Test Date: 2025-03-17 Pat Name: RAFFAELE ALBARRAN Department: Room: - Gender: Male Client Care Manager: JSOE : 1940 Requested By: Suha Miramontes Order Number: [id number] Reading MD: Suha Miramontes Measurements Intervals [place] Rate: 67 P: 64 MO: 160 QRS: 49 QRSD: 95 T: 56 QT: 379 QTc: 400 Interpretive Statements SINUS RHYTHM WITH SINUS ARRHYTHMIA Compared to ECG 12/16/2024 08:06:30 No significant changes /store/S0/[id number].pdf
[2025-03-17 13:36] LABS: Basophils # (Auto) 0.0 Thou/mm3 (0.0-0.2); Basophils % (Auto) 0 % (0-2.5); Eosinophils # (Auto) 0.2 Thou/mm3 (0.0-0.5); Eosinophils % (Auto) 2 % (0-10); Hematocrit 41.0 % (41.0-53.0); Hemoglobin 13.2 g/dL (13.5-16.0); Immature Granulocytes Auto 0.05 Thou/mm3 (0.00-0.00); Lymphocytes # (Auto) 1.7 Thou/mm3 (1.0-4.8); Lymphocytes % (Auto) 18 % (10-50); Mean Corpuscular HGB Conc 32.2 g/dl (31.0-37.0); Mean Corpuscular Hemoglobin 29.3 pg (25.0-35.0); Mean Corpuscular Volume 91 fL (80-100); Monocytes # (Auto) 0.8 Thou/mm3 (0.0-0.8); Monocytes % (Auto) 9 % (0-12); Neutrophils # (Auto) 6.2 Thou/mm3 (1.8-7.7); Neutrophils % (Auto) 69 % (37-80); Nucleated Red Blood Cell # 0.00 Thou/mm3 (0.00-0.00); Nucleated Red Blood Cell % 0 /100 WBC (0); Platelet Count 211 Thou/mm3 (140-440); RDW Standard Deviation 49.4 fL (35.1-43.9); Red Blood Count 4.50 Miln/mm3 (4.50-5.90); White Blood Count 9.0 Thou/mm3 (3.8-10.6)
[2025-03-17 13:52] LABS: INR 1.1 (0.9-1.3); Partial Thromboplastin Time 27.6 Seconds (22.0-36.0); Prothrombin Time 12.0 Seconds (9.0-12.2)
[2025-03-17 13:58] LABS: Anion Gap 10 (7-16); BUN/Creatinine Ratio 16 Ratio (12-20); Blood Urea Nitrogen 18 mg/dL (9-23); Calcium 10.1 mg/dL (8.3-10.6); Carbon Dioxide 29.2 mMol/L (20.0-31.0); Chloride 101 mMol/L (98-107); Creatinine (Component) 1.1 mg/dL (0.6-1.3); Estimated Creatinine Clearance 46.6 mL/min (>60); Glucose 112 mg/dL (74-106); Osmolality,Calculated 282 (275-295); Potassium 4.3 mMol/L (3.4-5.1); Sodium 140 mMol/L (136-145); eGFR > 60 See Note
[2025-03-18] VITALS (18 sets, daily range): BP systolic 130–169; BP diastolic 70–93; PULSE 56–71; RESP 12–23; TEMP 36.7–36.9; O2SAT 94–97; BMI 27.7
--- NOTE | 2025-03-18 12:37 | PC.NURSE ---
1237 patient is awake, alert, breathing unlabored, s/p carotid angiogram, dressing to left groin dry with no bleeding or hematoma, report given to James REDMAN, patient to recover until 1630, aspirin and eliquis to be resumed tomorrow.
--- NOTE | 2025-03-18 15:16 | ESOP_ITS ---
RE: RAFFAELE ALBARRAN : 1940 DATE OF OPERATION: 03/18/2025 PROCEDURES PERFORMED: 1. Selective catheter placement in the aortic arch, aortic arch angiogram. 2. Selective catheter placement in the right common carotid artery, secondary branch from the aorta, right carotid and cerebral angiogram with extracranial and intracranial arterial angiogram, CPT code 26877. 3. Selective catheter placement in the left subclavian artery, CPT code 99451. 4. Left subclavian and vertebral angiogram. 5. Conscious sedation, 30-minute duration. DIAGNOSES: Bilateral carotid stenosis, history of transient ischemic attack_ HISTORY AND INDICATIONS: The patient is an 85-year-old elderly male with a history of abdominal aortic aneurysm, stent graft placement, history of TIA stroke in 11/2024 who was hospitalized with diagnosis of stroke, 13 mm acute infarct in the left caudate nucleus with persistent right-sided facial droop. The patient underwent CT of the neck that showed evidence of what is described as 80% stenosis of the right internal carotid artery and 80% stenosis of the left internal carotid artery, and 50% stenosis of the right middle cerebral artery. Carotid ultrasound examination did not confirm the severe stenosis 50% stenosis. Carotid angiogram is recommended for assessment of candidacy for stent high risk for any surgical intervention. DESCRIPTION OF PROCEDURE: The patient was brought to the cardiac catheterization laboratory. He was given conscious sedation with 2 mg of Versed and 50 mcg of fentanyl. Right femoral approach was initially taken. There was heavy calcification, and we could not advance the wire, possibly occluded. Left femoral approach was then taken. The left femoral artery was entered by micropuncture technique and a 5-Bengali sheath was introduced. Using an FR4 diagnostic catheter, I was able to place an aortic arch and aortic arch angiogram was performed. Subsequently using a glidewire, I was able to pass the FR4 diagnostic catheter into the right common carotid artery. Right carotid and cerebral angiogram was performed. Subsequently, FR4 diagnostic catheter was placed in the left subclavian artery angiogram was performed. I was unable to cannulate the left common carotid because the origin appears to be at an angle that I was unable to cannulate from Left common carotid artery . FINDINGS: The findings of the aortic arch appear to be a type 3 aortic arch with calcification. The right innominate artery showed calcification Subclavian artery, which is normal. Vertebral artery, which is normal. Right carotid angiogram showed that there is evidence of complex plaque in the distal common carotid artery, approximately 50% stenosis in the distal common carotid artery at the bifurcation. There is some haziness and calcification. The left internal carotid artery showed evidence of a 60% to 70% stenosis of the proximal segment. There is heavy calcification as well. Cerebral angiogram, right middle cerebral artery appears normal. There is no evidence of any collateral flow to the left side. The right anterior cerebral artery is normal. There is no evidence of cerebral aneurysms or malformation. Left subclavian artery is normal. Left vertebral artery is normal. Right vertebral artery is normal. SUMMARY OF FINDINGS ASSESSMENT: 1. Moderate 60% stenosis of the right internal carotid artery. 2. Unable to cannulate the left common carotid artery. 3. Normal vertebral arteries and left subclavian artery. RECOMMENDATIONS: The patient will continue medical management. I do not think the patient is a candidate for carotid stent placement; he is not a candidate for surgery. Since the stenosis is only moderate, the patient will be treated with medical management only, currently considering advanced age and high risk for any surgical intervention. The patient also has history of atrial fibrillation on Eliquis, which will be continued along with a low-dose aspirin. DT: 13:17:13 TT: 15:14:00 Ref: [id number] - TID: [id number] [facility]
--- NOTE | 2025-03-18 16:42 | PC.NURSE ---
1513 patient is awake, alert, breathing unlabored, s/p carotid angiogram, NIH Scale score 0. dressing to left groin dry with no bleeding or hematoma. Report received from Antoine REDMAN, patient to recover until 1630. 1635 patient is wake, alert, breathing unlabored, dressing to left groin dry with no bleeding or hematoma, NIH scale score 0. Patient able to eat lunch, able to void, meets discharge criteria, discharge instructions have been given to patient and stepdaughter, patient discharged home in wheelchair with all belongings.
== END 2025-03-18 16:35 | disposition home or self-care (01) ==
PROVIDERS: PCP Family Medicine; Referring Provider Internal Medicine Cardiovascular Disease; Visit Provider Internal Medicine Cardiovascular Disease
PROC: (CPT 36224; principal; 2025-03-18 11:30)
DX: I65.23 Occlusion and stenosis of bilateral carotid arteries (principal); I48.21 Permanent atrial fibrillation; I67.89 Other cerebrovascular disease; E78.00 Pure hypercholesterolemia, unspecified; I10 Essential (primary) hypertension; I25.10 Atherosclerotic heart disease of native coronary artery without angina pectoris; Z86.73 Personal history of transient ischemic attack (TIA), and cerebral infarction without residual deficits; Z01.810 Encounter for preprocedural cardiovascular examination
CPT/HCPCS: 36223; 36415; 80048; 85025; 85610; 85730; 93005; 99152; 99153; A4649; C1751; C1769; C1894; J0168; J0461; J1643; J2250; J2312; J2371; J2405; J3010; J3490; Q9967; J2305

== ENCOUNTER → 2025-06-12 | Outpatient (BNVA) | payer MEDICARE, SELFPAY | END | disposition home or self-care (01) | PROVIDERS: PCP Family Medicine; Referring Provider Family Medicine; Visit Provider Urology | DX: N40.1 Benign prostatic hyperplasia with lower urinary tract symptoms (principal); I10 Essential (primary) hypertension; E11.9 Type 2 diabetes mellitus without complications; R39.198 Other difficulties with micturition; R35.1 Nocturia | CPT/HCPCS: 81003; 99212; G0463 ==